=== PATIENT | female | born 1960 | race Caucasian/White ===

== ENCOUNTER → 2016-10-12 | Outpatient (CLI) | payer BC ==
--- NOTE | 2016-10-13 08:22 | MM ---
Reason for exam: screening (asymptomatic). Last mammogram was performed 9 months ago. History: Patient is postmenopausal. Family history of breast cancer in paternal aunt. Benign left US cyst aspiration of the left breast, September 27, 2007. Benign US left CoreBiopsy of the left breast, September 27, 2007. Took hormonal contraceptives for 12 years. Physical Findings: A clinical breast exam by your physician is recommended on an annual basis and results should be correlated with mammographic findings. MG Screening Mammo w CAD Bilateral CC and MLO view(s) were taken. Prior study comparison: January 02, 2016, right breast MG 3d work up w/cad RT. December 17, 2015, bilateral MG screening mammo w CAD. The breast tissue is extremely dense which could obscure a lesion on mammography. Previous mammotome biopsy within the left breast. There is no discrete abnormality. ASSESSMENT: Benign, BI-RAD 2 RECOMMENDATION: Routine screening mammogram of both breasts in 1 year.
== END | disposition home or self-care (01) ==
LOC: RADMAMWWP 16:52
PROVIDERS: ATTEND Obstetrics & Gynecology
DX: Z12.31 Encounter for screening mammogram for malignant neoplasm of breast (principal)

== ENCOUNTER → 2017-11-22 | Outpatient (CLI) | payer BC ==
--- NOTE | 2017-11-23 13:37 | MM ---
Reason for exam: screening (asymptomatic). Last mammogram was performed 1 year and 1 month ago. History: Patient is postmenopausal. Family history of breast cancer in paternal aunt. Benign left US cyst aspiration of the left breast, September 27, 2007. Benign US left CoreBiopsy of the left breast, September 27, 2007. Took hormonal contraceptives for 12 years. Physical Findings: A clinical breast exam by your physician is recommended on an annual basis and results should be correlated with mammographic findings. MG 3D Screening Mammo W/Cad Bilateral CC and MLO view(s) were taken. Prior study comparison: October 12, 2016, bilateral MG screening mammo w CAD. January 02, 2016, right breast MG 3d work up w/cad RT. The breast tissue is heterogeneously dense. This may lower the sensitivity of mammography. Previous mammotome biopsy in the left breast. There is no discrete abnormality. Benign bilateral axillary lymph nodes redemonstrated. ASSESSMENT: Benign, BI-RAD 2 RECOMMENDATION: Routine screening mammogram of both breasts in 1 year.
== END | disposition home or self-care (01) ==
LOC: RADMAMWWP 16:55
PROVIDERS: ATTEND Obstetrics & Gynecology
DX: Z12.31 Encounter for screening mammogram for malignant neoplasm of breast (principal); Z80.3 Family history of malignant neoplasm of breast
CPT/HCPCS: 77063; 77067

== ENCOUNTER → 2019-01-12 | Outpatient (CLI) | payer BC ==
--- NOTE | 2019-01-16 09:18 | MM ---
Reason for exam: screening (asymptomatic). Last mammogram was performed 1 year and 2 months ago. History: Patient is postmenopausal. Family history of breast cancer in paternal aunt. Benign left US cyst aspiration of the left breast, September 27, 2007. Benign US left CoreBiopsy of the left breast, September 27, 2007. Took hormonal contraceptives for 12 years. Physical Findings: A clinical breast exam by your physician is recommended on an annual basis and results should be correlated with mammographic findings. MG 3D Screening Mammo W/Cad Bilateral CC and MLO view(s) were taken. Prior study comparison: November 22, 2017, bilateral MG 3d screening mammo w/cad. October 12, 2016, bilateral MG screening mammo w CAD. The breast tissue is heterogeneously dense. This may lower the sensitivity of mammography. Previous mammotome biopsy in the left breast. No significant changes when compared with prior studies. ASSESSMENT: Negative, BI-RAD 1 RECOMMENDATION: Routine screening mammogram of both breasts in 1 year.
== END | disposition home or self-care (01) ==
LOC: RADMAMWWP 16:47
PROVIDERS: ATTEND Obstetrics & Gynecology
DX: Z12.31 Encounter for screening mammogram for malignant neoplasm of breast (principal)
CPT/HCPCS: 77063; 77067

== ENCOUNTER → 2021-10-16 | Outpatient (CLI) | payer BC ==
--- NOTE | 2021-10-21 12:28 | MM ---
Reason for exam: screening (asymptomatic). Last mammogram was performed 2 years and 9 months ago. History: Patient is postmenopausal. Family history of breast cancer in paternal aunt at age 60. Benign left US cyst aspiration of the left breast, September 27, 2007. Benign US left CoreBiopsy of the left breast, September 27, 2007. Took hormonal contraceptives for 12 years. Physical Findings: A clinical breast exam by your physician is recommended on an annual basis and results should be correlated with mammographic findings. MG 3D Screening Mammo W/Cad Bilateral CC and MLO view(s) were taken. Prior study comparison: January 12, 2019, bilateral MG 3d screening mammo w/cad. November 22, 2017, bilateral MG 3d screening mammo w/cad. The breast tissue is heterogeneously dense. This may lower the sensitivity of mammography. Previous mammotome biopsy in the left breast. Two medial asymmetric densities left CC view posteriorly are unchanged. No significant changes when compared with prior studies. ASSESSMENT: Benign, BI-RAD 2 RECOMMENDATION: Routine screening mammogram of both breasts in 1 year. Patient should continue monthly self breast exams. A negative report should not preclude additional follow up of suspicious palpable abnormalities.
== END | disposition home or self-care (01) ==
LOC: RADMAMWWP 16:47
PROVIDERS: ATTEND Obstetrics & Gynecology
DX: Z12.31 Encounter for screening mammogram for malignant neoplasm of breast (principal); Z78.0 Asymptomatic menopausal state; Z80.3 Family history of malignant neoplasm of breast
CPT/HCPCS: 77063; 77067

== ENCOUNTER → 2022-12-29 | Outpatient (CLI) | payer BC ==
--- NOTE | 2022-12-30 09:09 | MM ---
Reason for Exam: Screening (asymptomatic). Last mammogram was performed 1 year(s) and 2 month(s) ago. Patient History: Menarche at age 14. First Full-Term at age 29. Postmenopausal. Patient used Hormonal Contraceptives for 12 years. 09/27/2007, Benign Cyst Aspiration on the left side. 09/27/2007, Benign Core Biopsy on the left side. Paternal aunt had breast cancer, age 60. Risk Values: Flor 5 year model risk: 1.9%. NCI Lifetime model risk: 9.5%. Prior Study Comparison: 11/22/2017 Bilateral Screening Mammogram, [facility]. 01/12/2019 Bilateral Screening Mammogram, [facility]. 10/16/2021 Bilateral Screening Mammogram, [facility]. Tissue Density: The breast tissue is heterogeneously dense. This may lower the sensitivity of mammography. Findings: Analyzed By CAD. There is mammotome biopsy clip in the left breast redemonstrated. There is occasional tiny benign-appearing round calcification in the bilateral breasts redemonstrated. Benign-appearing bilateral axillary lymph nodes are redemonstrated. There is no suspicious group of microcalcifications or new suspicious mass in either breast. Overall Assessment: Benign, BI-RAD 2 Management: Screening Mammogram of both breasts in 1 year. . Patient should continue monthly self-breast exams. A clinical breast exam by your physician is recommended on an annual basis. This exam should not preclude additional follow-up of suspicious palpable abnormalities. Note on Flor scores and lifetime risk: 1. A Flor score greater than 3% is considered moderate risk. If this is the case, consider specialist referral to assess eligibility for a risk reducing agent. 2. If overall lifetime risk for the development of breast cancer is 20% or higher, the patient may qualify for future screening with alternating mammogram and breast MRI. Electronically signed and approved by: Sai Zavala M.D.
== END | disposition home or self-care (01) ==
LOC: RADMAMWWP 16:51
PROVIDERS: ATTEND Obstetrics & Gynecology
DX: Z12.31 Encounter for screening mammogram for malignant neoplasm of breast (principal); Z78.0 Asymptomatic menopausal state; Z80.3 Family history of malignant neoplasm of breast
CPT/HCPCS: 77063; 77067

== ENCOUNTER → 2024-02-16 | Outpatient (CLI) | payer BC ==
[2024-02-16 15:30] LABS: HCT 43.2 % (37.2-46.3); HGB 14.8 g/dL (12.0-15.0); MCHC 34.3 g/dL (32.0-37.0); MCV 90.4 FL (80.0-97.0); Mean Platelet Volume 10.6 FL (9.5-12.2); NRBC Per 100 WBC 0 X 10*3/uL (0.00-0.01); Platelet Count 361 X 10*3/uL (140-440); RBC 4.78 X 10*6/uL (4.10-5.20); RDW 13.2 % (11.5-14.5); WBC 11.33 X 10*3/uL (4.50-10.00)
[2024-02-16 16:16] LABS: Blood Urea Nitrogen 11.7 mg/dL (9.0-27.0); Calcium 9.4 mg/dL (8.7-10.3); Carbon Dioxide 24.6 mmol/L (21.6-31.8); Chloride 102 mmol/L (96-109); Chol/HDL Ratio 5.68 Ratio; Glucose 107 mg/dL (70-110); LDL Cholesterol,Calculated 127.7 mg/dL (0.0-131.0); Potassium 3.9 mmol/L (3.5-5.5); Sodium 140 mmol/L (135-145)
[2024-02-16 16:17] LABS: ALT 21 U/L (8-44); AST 19 U/L (13-35); Albumin 4.6 g/dL (3.8-4.9)
== END | disposition home or self-care (01) ==
LOC: LABWHC1 08:21
PROVIDERS: ATTEND Internal Medicine Cardiovascular Disease
DX: E78.2 Mixed hyperlipidemia (principal); R60.0 Localized edema; R06.2 Wheezing
CPT/HCPCS: 36415; 80048; 80061; 82040; 84443; 84450; 84460; 85027

== ENCOUNTER 2024-03-29 12:50 | Inpatient (IN) | payer BC ==
[2024-03-29] MEDS: ASPIRIN 81 MG PO STA (13:26)
[2024-03-29] MEDS: SODIUM CHLORIDE 0.9% 1,000 ML IV STA (13:27)
[2024-03-29 13:30] LABS: Basophils % (A) 0 %; Eosinophils # (A) 0.1 k/uL (0-0.7); Eosinophils % (A) 1 %; HCT 44.5 % (34.0-46.0); HGB 15.1 gm/dL (11.4-16.0); Lymphocytes # (A) 0.8 k/uL (1.0-4.8); Lymphocytes % (A) 5 %; MCH 30.9 pg (25.0-35.0); MCHC 33.9 g/dL (31.0-37.0); MCV 91.2 fL (80.0-100.0); Mean Platelet Volume 7.2; Monocytes # (A) 0.3 k/uL (0-1.0); Monocytes % (A) 2 %; Neutrophils # (A) 14.1 k/uL (1.3-7.7); Neutrophils % (A) 91 %; Platelet Count 439 k/uL (150-450); RBC 4.88 m/uL (3.80-5.40); RDW 12.7 % (11.5-15.5); WBC 15.5 k/uL (3.8-10.6)
[2024-03-29] MEDS: DILTIAZEM DRIP BOLUS FROM BAG 1 MG SOLN IV ONE ×2 (13:39→14:24)
[2024-03-29] MEDS: DILTIAZEM 125 MG in SODIUM CHLORIDE 0.9% 100 ML IV SCH (13:41)
[2024-03-29 13:42] LABS: ALT 60 U/L (4-34); African American GFR (CKD) >90 (>60 ml/min/1.73 sqM); Albumin 4.4 g/dL (3.5-5.0); Anion Gap 8 mmol/L; Blood Urea Nitrogen 13 mg/dL (7-17); Calcium 9.6 mg/dL (8.4-10.2); Carbon Dioxide 24 mmol/L (22-30); Chloride 96 mmol/L (98-107); Glucose 134 mg/dL (74-99); Non-African American GFR(CKD) >90 (>60 ml/min/1.73 sqM); Sodium 128 mmol/L (137-145); Total Bilirubin 0.6 mg/dL (0.2-1.3); Total Protein 7.2 g/dL (6.3-8.2)
[2024-03-29 13:44] LABS: AST 38 U/L (14-36); INR 0.9 (<1.2); Magnesium 1.9 mg/dL (1.6-2.3); Partial Thromboplastin Time 24.3 sec (22.0-30.0); Potassium 4.9 mmol/L (3.5-5.1); Prothrombin Time 10.2 sec (10.0-12.5)
[2024-03-29 13:45] LABS: Alkaline Phosphatase 74 U/L (38-126)
[2024-03-29 13:48] LABS: NT-Pro-B-Type Natriuretic Pept 109 pg/mL
--- NOTE | 2024-03-29 13:53 | ED ---
General Adult HPI - General Chief complaint: Arrhythmia/Palpitations Stated complaint: SOB Time Seen by Provider: 03/29/24 13:10 Source: patient, RN notes reviewed, old records reviewed Mode of arrival: wheelchair Limitations: no limitations - History of Present Illness Initial comments: Patient is a 63-year-old female who presents emergency department for palpitations, cough, congestion. Patient has been getting treatment for an upper respiratory infection with her PCP Dr. Pink. Given prednisone, breathing treatments, antibiotics. States today she began having more shortness of breath after using her inhaler. States she felt like her heart was racing when this occurred. Presents for further evaluation at this time. Patient p laced in room 19 where I evaluated the patient. She endorses coughing. Ongoing since over the weekend. Presents for further evaluation at this time. Past medical history includes hypertension, thyroid disorder, history of tobacco use. - Related Data Home Medications Medication Instructions Recorded Confirmed Ascorbic Acid [Vitamin C] 1,000 mg PO DAILY 03/29/24 03/29/24 Azelastine HCl [Astelin Nasal 2 spray EA NOSTRIL BID PRN 03/29/24 03/29/24 [place]] Azithromycin [Zithromax Z Pack] See Taper PO DIRECTED 03/29/24 03/29/24 Fluticasone/Umeclidin/Vilanter 1 puff INHALATION RT-DAILY 03/29/24 03/29/24 [Trelegy Ellipta 100-62.5-25] Levothyroxine Sodium [Synthroid] 125 mcg PO DAILY 03/29/24 03/29/24 Losartan/Hydrochlorothiazide 1 tab PO DAILY 03/29/24 03/29/24 [Losartan-Hctz 100-25 mg Tab] Multivitamins, Thera [Multivitamin 1 tab PO DAILY 03/29/24 03/29/24 (formulary)] Potassium Chloride ER [K-Dur 10] 10 meq PO DAILY 03/29/24 03/29/24 amLODIPine [Norvasc] 10 mg PO DAILY 03/29/24 03/29/24 hydrALAZINE HCL [Apresoline] 50 mg PO BID 03/29/24 03/29/24 predniSONE 50 mg PO DAILY 03/29/24 03/29/24 Allergies Allergy/AdvReac Type Severity Reaction Status Date / Time amoxicillin [From Augmentin] Allergy Nausea & Verified 03/29/24 13:37 Vomiting clavulanic acid Allergy Nausea & Verified 03/29/24 13:37 [From Augmentin] Vomiting Review of Systems ROS Statement: Those systems with pertinent positive or pertinent negative responses have been documented in the HPI. Review of Systems: CONST: Denies fever EYES: Denies blurry vision ENT: Denies nasal congestion C/V: Endorses palpitations RESP: Endorses shortness of breath GI: Denies abdominal pain : Denies dysuria SKIN: Denies rash. MSK: Denies joint pain. NEURO: Denies headache ROS Other: All systems not noted in ROS Statement are negative. Past Medical History Past Medical History: Hypertension, Thyroid Disorder History of Any Multi-Drug Resistant Organisms: None Reported Past Surgical History: Section, Cholecystectomy, Tonsillectomy Past Psychological History: No Psychological Hx Reported Smoking Status: Current every day smoker Past Alcohol Use History: None Reported Past Drug Use History: None Reported General Exam - General Exam Comments Initial Comments: General: Appears in mild distress and discomfort secondary to palpitations. HEAD: Normal with no signs of head trauma. EYES: PERRLA, EOMI, conjunctiva normal, no discharge. ENT: Hearing grossly intact, normal oropharynx. RESPIRATORY: Mildly coarse breath sounds bilaterally. No significant hypoxia. No significant increased work of breathing. C/V: Irregular rate and rhythm. S1 and S2 auscultated, no edema, peripheral pulses 2+ and intact throughout ABD: Abd is soft, nontender, nondistended EXT: Normal range of motion, no obvious deformity SKIN: No rashes or lesions observed on exposed skin. NEURO: Alert and oriented x 4. Limitations: no limitations Course Vital Signs 03/29/24 03/29/24 03/29/24 12:51 13:32 13:36 Temperature 98.1 F Pulse Rate 151 H 151 H Pulse Rate [ 155 H Internal Medicine Physician ] Respiratory 16 18 Rate Blood Pressure 135/77 106/74 O2 Sat by Pulse 94 L 98 Oximetry 03/29/24 03/29/24 03/29/24 13:37 13:43 14:00 Temperature Pulse Rate 149 H 137 H 149 H Pulse Rate [ Internal Medicine Physician ] Respiratory 18 18 20 Rate Blood Pressure 113/81 122/78 O2 Sat by Pulse 95 95 96 Oximetry 03/29/24 03/29/24 03/29/24 14:15 14:25 14:30 Temperature Pulse Rate 142 H 130 H 80 Pulse Rate [ Internal Medicine Physician ] Respiratory 20 18 18 Rate Blood Pressure 131/105 126/86 131/76 O2 Sat by Pulse 97 96 96 Oximetry 03/29/24 03/29/24 14:32 16:30 Temperature Pulse Rate 128 H 136 H Pulse Rate [ Internal Medicine Physician ] Respiratory 18 18 Rate Blood Pressure 90/72 O2 Sat by Pulse 96 98 Oximetry Medical Decision Making - Medical Decision Making Was pt. sent in by a medical professional or institution (, [facility], SEED LABORATORY TECHNICIAN, urgent care, hospital, or penitentiary...) When possible be specific @ -No Did you speak to anyone other than the patient for history (EMS, parent, family, police, friend...)? What history was obtained from this source @ -No Did you review nursing and triage notes (agree or disagree)? Why? @ -I reviewed and agree with nursing and triage notes Were old charts reviewed (outside hosp., previous admission, EMS record, old EKG, old radiological studies, urgent care reports/EKG's, penitentiary records)? Report findings @ -No old EKGs available for review Differential Diagnosis (chest pain, altered mental status, abdominal pain women, abdominal pain men, vaginal bleeding, weakness, fever, dyspnea, syncope, headache, dizziness, GI bleed, back pain, seizure, CVA, palpatations, mental health, musculoskeletal)? @ -Differential Palpitations Ventricular arrhythmias, atrial arrhythmias, myocardial infarction, anemia, thyrotoxicosis, electrolyte imbalance, hypokalemia, pulmonary embolism, pulmonary disease, drugs, alcohol, anxiety, stress.... This is not meant to be an all-inclusive list. EKG interpreted by me (3pts min.). @ -As above X-rays interpreted by me (1pt min.). @ -Chest x-ray reveals no obvious acute cardiopulmonary process. CT interpreted by me (1pt min.). @ -None done U/S interpreted by me (1pt. min.). @ -None done What testing was considered but not performed or refused? (CT, X-rays, U/S, labs)? Why? @ -None What meds were considered but not given or refused? Why? @ -None Did you discuss the management of the patient with other professionals (professionals i.e. , PA, SEED LABORATORY TECHNICIAN, lab, RT, psych nurse, oncology social work, tractor trailer mechanic, teacher, surface to air weapons officer, heel caser)? Give summary @ -Discussed with [facility] Dr. Meraz who accepted the admission. Was smoking cessation discussed for >3mins.? @ -No Was critical care preformed (if so, how long)? @ -Yes, 41 minutes. Were there social determinants of health that impacted care today? How? (Homelessness, low income, unemployed, alcoholism, drug addiction, transportation, low edu. Level, literacy, decrease access to med. care, longterm, rehab)? @ -No Was there de-escalation of care discussed even if they declined (Discuss DNR or withdrawal of care, Hospice)? DNR status @ -No What co-morbidities impacted this encounter? (DM, HTN, Smoking, COPD, CAD, Cancer, CVA, ARF, Chemo, Hep., AIDS, mental health diagnosis, sleep apnea, morbid obesity)? @ -None Was patient admitted / discharged? Hospital course, mention meds given and route, prescriptions, significant lab abnormalities, going to OR and other pertinent info. @ -Based on the patient's presentation and physical exam, presents in new onset A-fib with RVR. Will obtain cardiopulmonary workup. Patient will be given a 1 L fluid bolus as well as started on Cardizem for A-fib. She was in agreement with this plan. Vital signs other than the tachycardia from the A-fib are within acceptable limits. Patient was in agreement this plan. Given 324 mg of aspirin. EKG shows A-fib with RVR.Chest x-ray shows no obvious acute cardiopulmonary process. Laboratory studies remarkable for elevated white count of 15.5 but patient has been on steroids. Likely reactive. Troponin undetectable. BNP within normal limits. D-dimer within normal limits. Remainder the workup unremarkable. At this time, patient placed on heparin drip. Patient's Cardizem drip is up to 7.5. Patient does intermittently convert to normal sinus rhythm. On average, patient is improved on this increased dose of Cardizem with heart rates typicall y 100-1 20 versus 1 40-1 60 upon presentation. Will continue with therapy. Cardiology will be consulted. Echo ordered. Patient in agreement this plan. I spoke with the admitting team, [facility] Dr. Meraz of [facility] who accepted the admission. Undiagnosed new problem with uncertain prognosis? @ -No Drug Therapy requiring intensive monitoring for toxicity (Heparin, Nitro, Insulin, Cardizem)? @ -Cardizem, heparin Were any procedures done? @ -No Diagnosis/symptom? @ -New onset atrial fibrillation with RVR Acute, or Chronic, or Acute on Chronic? @ -Acute Uncomplicated (without systemic symptoms) or Complicated (systemic symptoms)? @ -Complicated Side effects of treatment? @ -None Exacerbation, Progression, or Severe Exacerbation] @ -No Poses a threat to life or bodily function? @ -Yes - Lab Data Result diagrams: 03/29/24 13:23 03/29/24 13:23 Lab Results 03/29/24 03/29/24 03/29/24 Range/Units 13:23 13:23 13:23 WBC 15.5 H (3.8-10.6) k/uL RBC 4.88 (3.80-5.40) m/uL Hgb 15.1 (11.4-16.0) gm/dL Hct 44.5 (34.0-46.0) % MCV 91.2 (80.0-100.0) fL MCH 30.9 (25.0-35.0) pg MCHC 33.9 (31.0-37.0) g/dL RDW 12.7 (11.5-15.5) % Plt Count 439 (150-450) k/uL MPV 7.2 Neutrophils % 91 % Lymphocytes % 5 % Monocytes % 2 % Eosinophils % 1 % Basophils % 0 % Neutrophils # 14.1 H (1.3-7.7) k/uL Lymphocytes # 0.8 L (1.0-4.8) k/uL Monocytes # 0.3 (0-1.0) k/uL Eosinophils # 0.1 (0-0.7) k/uL Basophils # 0.0 (0-0.2) k/uL PT 10.2 (10.0-12.5) sec INR 0.9 (<1.2) APTT 24.3 (22.0-30.0) sec D-Dimer 0.25 (<0.60) mg/L FEU Sodium 128 L (137-145) mmol/L Potassium 4.9 (3.5-5.1) mmol/L Chloride 96 L (98-107) mmol/L Carbon Dioxide 24 (22-30) mmol/L Anion Gap 8 mmol/L BUN 13 (7-17) mg/dL Creatinine 0.46 L (0.52-1.04) mg/dL Est GFR (CKD-EPI)AfAm >90 (>60 ml/min/1.73 sqM) Est GFR (CKD-EPI)NonAf >90 (>60 ml/min/1.73 sqM) Glucose 134 H (74-99) mg/dL Calcium 9.6 (8.4-10.2) mg/dL Magnesium 1.9 (1.6-2.3) mg/dL Total Bilirubin 0.6 (0.2-1.3) mg/dL AST 38 H (14-36) U/L ALT 60 H (4-34) U/L Alkaline Phosphatase 74 (38-126) U/L Troponin I (0.000-0.034) ng/mL NT-Pro-B Natriuret Pep 109 pg/mL Total Protein 7.2 (6.3-8.2) g/dL Albumin 4.4 (3.5-5.0) g/dL Urine Color Urine Appearance (Clear) Urine pH (5.0-8.0) Ur Specific [place] (1.001-1.035) Urine Protein (Negative) Urine Glucose (UA) (Negative) Urine Ketones (Negative) Urine Blood (Negative) Urine Nitrite (Negative) Urine Bilirubin (Negative) Urine Urobilinogen (<2.0) mg/dL Ur Leukocyte Esterase (Negative) Influenza Type A (PCR) (Not Detectd) Influenza Type B (PCR) (Not Detectd) RSV (PCR) (Not Detectd) SARS-CoV-2 (PCR) (Not Detectd) 03/29/24 03/29/24 03/29/24 Range/Units 13:23 13:23 13:23 WBC (3.8-10.6) k/uL RBC (3.80-5.40) m/uL Hgb (11.4-16.0) gm/dL Hct (34.0-46.0) % MCV (80.0-100.0) fL MCH (25.0-35.0) pg MCHC (31.0-37.0) g/dL RDW (11.5-15.5) % Plt Count (150-450) k/uL MPV Neutrophils % % Lymphocytes % % Monocytes % % Eosinophils % % Basophils % % Neutrophils # (1.3-7.7) k/uL Lymphocytes # (1.0-4.8) k/uL Monocytes # (0-1.0) k/uL Eosinophils # (0-0.7) k/uL Basophils # (0-0.2) k/uL PT (10.0-12.5) sec INR (<1.2) APTT (22.0-30.0) sec D-Dimer (<0.60) mg/L FEU Sodium (137-145) mmol/L Potassium (3.5-5.1) mmol/L Chloride (98-107) mmol/L Carbon Dioxide (22-30) mmol/L Anion Gap mmol/L BUN (7-17) mg/dL Creatinine (0.52-1.04) mg/dL Est GFR (CKD-EPI)AfAm (>60 ml/min/1.73 sqM) Est GFR (CKD-EPI)NonAf (>60 ml/min/1.73 sqM) Glucose (74-99) mg/dL Calcium (8.4-10.2) mg/dL Magnesium (1.6-2.3) mg/dL Total Bilirubin (0.2-1.3) mg/dL AST (14-36) U/L ALT (4-34) U/L Alkaline Phosphatase (38-126) U/L Troponin I <0.012 (0.000-0.034) ng/mL NT-Pro-B Natriuret Pep pg/mL Total Protein (6.3-8.2) g/dL Albumin (3.5-5.0) g/dL Urine Color Colorless Urine Appearance Clear (Clear) Urine pH 7.0 (5.0-8.0) Ur Specific [place] 1.004 (1.001-1.035) Urine Protein Negative (Negative) Urine Glucose (UA) Negative (Negative) Urine Ketones Negative (Negative) Urine Blood Negative (Negative) Urine Nitrite Negative (Negative) Urine Bilirubin Negative (Negative) Urine Urobilinogen <2.0 (<2.0) mg/dL Ur Leukocyte Esterase Negative (Negative) Influenza Type A (PCR) Not Detected (Not Detectd) Influenza Type B (PCR) Not Detected (Not Detectd) RSV (PCR) Not Detected (Not Detectd) SARS-CoV-2 (PCR) Not Detected (Not Detectd) - EKG Data -: EKG Interpreted by Me EKG Comments: 12-lead Electrocardiogram Interpretation Note EKG was reviewed and interpreted by myself. 12-lead ECG performed at 1303 is interpreted by me as revealing A-fib with RVR at a rate of 149 beats per minute. [place] is normal. QRS durations 142 ms, QTc is 3 and 43 ms.. There were no ST or T wave abnormalities to suggest myocardial ischemia or injury. R wave progression across the precordium was satisfactory. By my interpretation this EKG is non-diagnostic for acute ischemia. 12-lead Electrocardiogram Interpretation Note EKG was reviewed and interpreted by myself. 12-lead ECG performed at 1440 is interpreted by me as revealing normal sinus rhythm at a rate of 70 beats per minute. [place] is normal. MS interval is 150 ms, QRS duration is 81 ms, QTc is 394 ms.. There were no ST or T wave abnormalities to suggest myocardial ischemia or injury. R wave progression across the precordium was satisfactory. By my interpretation this EKG is non-diagnostic for acute ischemia. Critical Care Time Critical Care Time: Yes Total Critical Care Time: 41 Disposition Clinical Impression: Atrial fibrillation with RVR Disposition: ADMITTED IP TO THIS HOSP Condition: Stable Time of Disposition: 14:40
[2024-03-29] MEDS ORDERED: NALOXONE 0.4 MG/ML 1 ML VIAL IV PRN (14:42)
[2024-03-29] MEDS ORDERED: HEPARIN SODIUM 1,000 UN/ML (10ML VL) IV PRN (14:42)
--- NOTE | 2024-03-29 14:57 | XR ---
EXAMINATION TYPE: XR chest 1V portable DATE OF EXAM: 03/29/2024 2:13 PM CLINICAL INDICATION: Female, 63 years old with history of cough; [facility] COMPARISON: None TECHNIQUE: XR chest 1V portable Frontal view of the chest. FINDINGS: Lungs/Pleura: There is no evidence of pleural effusion, focal consolidation, or pneumothorax. Pulmonary vascularity: Unremarkable. Heart/mediastinum: Cardiomediastinal silhouette is unremarkable. Musculoskeletal: No acute osseous pathology. Other findings: None IMPRESSION: No acute cardiopulmonary disease/process.
[2024-03-29] MEDS: SODIUM CHLORIDE 0.9% 1,000 ML IV SCH (15:03)
[2024-03-29] MEDS: HEPARIN SOD,PORK IN 0.45% NACL 25,000 UNIT in 0.45% NACL 1 250ML.BAG IV SCH (15:05)
[2024-03-29] MEDS: HEPARIN SODIUM 1,000 UN/ML (10ML VL) IV ONE (15:23)
[2024-03-29 15:24] LABS: Appearance,Urine Clear (Clear); Bilirubin,Urine Negative (Negative); Blood,Urine Negative (Negative); Color,Urine Colorless; Glucose,Urine (UA) Negative (Negative); Ketones,Urine Negative (Negative); Leukocyte Esterase,Urine Negative (Negative); Nitrite,Urine Negative (Negative); Protein,Urine Negative (Negative); Specific Gravity,Urine 1.004 (1.001-1.035); Urobilinogen,Urine <2.0 mg/dL (<2.0)
[2024-03-30] MEDS: DILTIAZEM CD 120 MG CAP.ER.24H PO SCH (09:22)
[2024-03-30] MEDS: hydrALAZINE HCL 25 MG TAB PO SCH (09:22)
--- NOTE | 2024-03-30 10:06 | P.CRDCN ---
History of Present Illness Consult date: 03/30/24 Reason for Consult (text): New onset atrial fibrillation History of present illness: This is a 63-year-old female patient of Dr. Rehan López with past medical history of palpitations, hypertension, tobacco use, chronic bilateral leg edema, hypoth yroidism. Patient was recently evaluated in the office on 01/24 and at that time patient was having shortness of breath mild to moderate intensity with exertion and relieved at rest. Patient underwent event monitor, exercise stress test and results are below. Echocardiogram was also ordered but is scheduled at a later date. Patient gives history that she was feeling okay but she had cold symptoms and was seen by Dr. Pink started on prednisone and azithromycin on Wednesday. She has had ongoing cough, no fever. She also states her medications were changed by Dr. Pink due to her blood pressure running high. Upon arrival, patient was found to be in atrial flutter with RVR. Patient was started on Cardizem bolus 5 mg followed by drip and heparin drip. Blood pressure 134/71, heart rate 69, pulse ox 96% on 2 L nasal cannula. Patient has subsequently converted to sinus rhythm around 2 in the afternoon yesterday. EKG: #1 atrial flutter at 149 bpm, #2 sinus rhythm at 70 bpm. Chest x-ray: Laboratory studies: WBC 15.5, hemoglobin 15.1. D-dimer 0.25. Sodium 128, potassium 4.9, BUN 13 creatinine 0.46. Troponins negative x 3. proBNP 109. Influenza A, influenza B, RSV and COVID-19 not detected Home cardiac medications: Amlodipine 10 mg daily, hydralazine 50 mg twice daily, losartan/hydrochlorothiazide 100-25 mg 1 daily, potassium chloride 10 mill equivalents daily, also on levothyroxine 125 mcg daily. Event monitor performed 02/28 - 03/01/2024 revealed sinus arrhythmia lasting 7 beats. Primary rhythm sinus rhythm average heart rate 88 bpm, maximum heart rate 179. No evidence of A-fib/flutter, pauses, AV block, ventricular arrhythmias. Exercise stress test performed in the office on 02/29/2024 revealed fair exercise tolerance. No symptoms typical of angina. Just arrhythmias in the form of occasional PVCs. Normal electrocardiographic response to exercise with no yoshi dence of stress-induced ischemia. Echocardiogram performed in the office in 2019 revealed normal LV size and function, mild MR, mild TR, mild [place]. Review Of Systems: At the time of my exam: CONSTITUTIONAL: Denies fever or chills. HEENT: Denies blurred vision, vision changes, or eye pain. Denies hemoptysis CARDIOVASCULAR: Denies chest pain. Denies orthopnea. Denies PND. Denies palpitations RESPIRATORY: Denies shortness of breath. GASTROINTESTINAL: Denies abdominal pain. Denies nausea or vomiting. HEMATOLOGIC: Denies bleeding disorders. GENITOURINARY: Denies any blood in urine. SKIN: Denies puritis. Denies rash. Physical examination: Gen: This is a 63-year-old female VS: reviewed HEENT: Head is atraumatic, normocephalic. Pupils equal, round. Sclerae is anicteric. NECK: Supple. No JVD. LUNGS: Few scattered rhonchi. No intercostal retractions. HEART: Regular rate and rhythm. No murmur. ABDOMEN: Soft No tenderness. EXTREMITIES: Mild pedal edema. No calf tenderness. NEUROLOGICAL: Patient is awake, alert and oriented x3. Assessment: New onset A-fib with RVR, paroxysmal Hypertension Tobacco use and dependence Hypothyroidism Chronic lower extremity edema Plan: Resume patient's home cardiac medications Hold beta-rossi and start patient on Cardizem CD1 120 mg oral daily Discontinue heparin drip and start patient on Eliquis 5 mg twice daily Obtain TSH and free T4 Obtain 2-D echocardiogram and Doppler study to assess cardiac structure and function Further recommendations to follow based upon clinical course Thank you kindly for this consultation. Nurse practitioner note has been reviewed, I agree with documented findings and plan of care. Patient was seen and examined. Past Medical History Past Medical History: Hypertension, Thyroid Disorder History of Any Multi-Drug Resistant Organisms: None Reported Past Surgical History: Section, Cholecystectomy, Tonsillectomy Past Psychological History: No Psychological Hx Reported Smoking Status: Current every day smoker Past Alcohol Use History: None Reported Past Drug Use History: None Reported Medications and Allergies Home Medications Medication Instructions Recorded Confirmed Type Ascorbic Acid [Vitamin C] 1,000 mg PO DAILY 03/29/24 03/29/24 History Azelastine HCl [Astelin Nasal 2 spray EA NOSTRIL BID PRN 03/29/24 03/29/24 History [place]] Azithromycin [Zithromax Z Pack] See Taper PO DIRECTED 03/29/24 03/29/24 History Fluticasone/Umeclidin/Vilanter 1 puff INHALATION RT-DAILY 03/29/24 03/29/24 History [Trelegy Ellipta 100-62.5-25] Levothyroxine Sodium [Synthroid] 125 mcg PO DAILY 03/29/24 03/29/24 History Losartan/Hydrochlorothiazide 1 tab PO DAILY 03/29/24 03/29/24 History [Losartan-Hctz 100-25 mg Tab] Multivitamins, Thera [Multivitamin 1 tab PO DAILY 03/29/24 03/29/24 History (formulary)] Potassium Chloride ER [K-Dur 10] 10 meq PO DAILY 03/29/24 03/29/24 History amLODIPine [Norvasc] 10 mg PO DAILY 03/29/24 03/29/24 History hydrALAZINE HCL [Apresoline] 50 mg PO BID 03/29/24 03/29/24 History predniSONE 50 mg PO DAILY 03/29/24 03/29/24 History Apixaban [Eliquis] 5 mg PO BID #180 tab 03/30/24 Rx Allergies Allergy/AdvReac Type Severity Reaction Status Date / Time amoxicillin [From Augmentin] Allergy Nausea & Verified 03/29/24 13:37 Vomiting clavulanic acid Allergy Nausea & Verified 03/29/24 13:37 [From Augmentin] Vomiting Physical Exam Vitals: Vital Signs Temp Pulse Pulse Resp BP Pulse Ox 03/30/24 06:59 98.3 F 69 16 134/71 96 03/29/24 18:52 87 18 109/60 94 L 03/29/24 18:00 77 18 112/68 95 03/29/24 17:00 72 18 104/64 94 L 03/29/24 16:30 136 H 18 90/72 98 03/29/24 14:32 128 H 18 96 03/29/24 14:30 80 18 131/76 96 03/29/24 14:25 130 H 18 126/86 96 03/29/24 14:15 142 H 20 131/105 97 03/29/24 14:00 149 H 20 122/78 96 03/29/24 13:43 137 H 18 95 03/29/24 13:37 149 H 18 113/81 95 03/29/24 13:36 151 H 18 106/74 98 03/29/24 13:32 155 H 03/29/24 12:51 98.1 F 151 H 16 135/77 94 L Intake and Output 03/29/24 03/30/24 03/30/24 22:59 06:59 14:59 Intake Total 15.125 67.833 Balance 15.125 67.833 Intake: Intake, IV Titration 15.125 67.833 Amount Diltiazem 125 mg In 15.125 67.833 Sodium Chloride 0.9% 100 ml @ 5 MG/HR 5 mls/hr IV .Q24H [facility] Rx#:[id number] Results 03/29/24 13:23 03/29/24 13:23 Cardiac Enzymes 03/29/24 03/29/24 03/29/24 Range/Units 13:23 13:23 16:32 AST 38 H (14-36) U/L Troponin I <0.012 <0.012 (0.000-0.034) ng/mL 03/29/24 Range/Units 21:01 AST (14-36) U/L Troponin I <0.012 (0.000-0.034) ng/mL Coagulation 03/29/24 03/29/24 Range/Units 13:23 21:01 PT 10.2 (10.0-12.5) sec APTT 24.3 24.5 (22.0-30.0) sec CBC 03/29/24 Range/Units 13:23 WBC 15.5 H (3.8-10.6) k/uL RBC 4.88 (3.80-5.40) m/uL Hgb 15.1 (11.4-16.0) gm/dL Hct 44.5 (34.0-46.0) % Plt Count 439 (150-450) k/uL Comprehensive Metabolic Panel 03/29/24 Range/Units 13:23 Sodium 128 L (137-145) mmol/L Potassium 4.9 (3.5-5.1) mmol/L Chloride 96 L (98-107) mmol/L Carbon Dioxide 24 (22-30) mmol/L BUN 13 (7-17) mg/dL Creatinine 0.46 L (0.52-1.04) mg/dL Glucose 134 H (74-99) mg/dL Calcium 9.6 (8.4-10.2) mg/dL AST 38 H (14-36) U/L ALT 60 H (4-34) U/L Alkaline Phosphatase 74 (38-126) U/L Total Protein 7.2 (6.3-8.2) g/dL Albumin 4.4 (3.5-5.0) g/dL Current Medications Generic Name Dose Route Start Last Admin Trade Name Freq PRN Reason Stop Dose Admin Heparin Sodium (Porcine) 0 unit 03/29/24 14:42 Heparin Sodium 1,000 Un/Ml (10ml Vl) IV PER PROTOCOL PRN Low PTT Protocol Diltiazem HCl 125 mg/ Sodium 125 mls @ 5 mls/hr 03/29/24 13:30 03/30/24 06:10 Chloride IV 5 mg/hr .Q24H [facility] 5 mls/hr Administration 5 MG/HR Heparin Sodium/Sodium Chloride 250 mls @ 10 mls/hr 03/29/24 14:45 03/29/24 15:05 25,000 unit/ Sodium Chloride IV 10.207 units/kg/hr .Q24H MOE 10 mls/hr Administration Protocol 10.207 UNITS/KG/HR Sodium Chloride 1,000 mls @ 75 mls/hr 03/29/24 14:45 03/30/24 06:42 Saline 0.9% IV Not Given .[id number] MOE Naloxone HCl 0.2 mg 03/29/24 14:42 Naloxone 0.4 Mg/Ml 1 Ml Vial IV Q2M PRN Opioid Reversal Intake and Output 03/29/24 03/30/24 03/30/24 22:59 06:59 14:59 Intake Total 15.125 67.833 Balance 15.125 67.833 Intake: Intake, IV Titration 15.125 67.833 Amount Diltiazem 125 mg In 15.125 67.833 Sodium Chloride 0.9% 100 ml @ 5 MG/HR 5 mls/hr IV .Q24H [facility] Rx#:[id number] 03/29/24 13:23 03/29/24 13:23
[2024-03-30] MEDS: LOSARTAN-HCTZ 50-12.5 MG 1 EACH TAB PO SCH (10:08)
[2024-03-30] MEDS: APIXABAN 5 MG TAB PO SCH (10:08)
[2024-03-30] MEDS ORDERED: AZELASTINE 137MCG/SPRAY EA NOSTRIL PRN (11:46)
[2024-03-30] MEDS ORDERED: IPRATROPIUM-ALBUTEROL 3 ML NEB INHALATION PRN ×2 (11:49→14:01)
[2024-03-30 11:57] LABS: ALT 50 U/L (4-34); AST 29 U/L (14-36); African American GFR (CKD) >90 (>60 ml/min/1.73 sqM); Albumin 4.1 g/dL (3.5-5.0); Alkaline Phosphatase 69 U/L (38-126); Anion Gap 5 mmol/L; Blood Urea Nitrogen 13 mg/dL (7-17); Calcium 9.3 mg/dL (8.4-10.2); Carbon Dioxide 29 mmol/L (22-30); Chloride 99 mmol/L (98-107); Glucose 92 mg/dL (74-99); Non-African American GFR(CKD) >90 (>60 ml/min/1.73 sqM); Potassium 4.7 mmol/L (3.5-5.1); Sodium 133 mmol/L (137-145); Total Bilirubin 0.5 mg/dL (0.2-1.3); Total Protein 6.6 g/dL (6.3-8.2)
[2024-03-30] MEDS: guaiFENesin 600 MG TABLET.ER PO SCH (12:54)
--- NOTE | 2024-03-30 14:01 | P.CNPUL ---
History of Present Illness Consult date: 03/30/24 Requesting physician: Jitendra Pink Reason for consult: dyspnea, cough, COPD, hypoxemia Chief complaint: Shortness of breath, rapid heartbeat. History of present illness: Pulmonary consult dated March 30, 2024. 63-year-old female presented to the emergency department, on March 29, at about 1 PM. The patient came in with complaints of rapid heartbeat, palpitations, and shortness of breath. She apparently had seen her doctor, and was given steroids and antibiotics, with only minimal improvement. More recently, things got worse, so she decided to come into the emergency department to be evaluated. Her primary care physician is Dr. Jitendra Pink. She is a heavy smoker, having smoked at least a pack a day for 40 years. She does continue to smoke up until the time of her admission. She denied any fever or chills. She was coughing. Things have gotten worse over the last few days, and, she was admitted to the hospital with a diagnosis of atrial fibrillation/flutter, with r apid ventricular response, as well as COPD exacerbation. She is seen today in room 19, in the emergency department. Her past medical history is positive for hypertension, hypothyroidism, and most certainly, COPD. She has never seen a lung doctor in the past, but was recently given Trelegy, by her primary care physician. In addition as mentioned above, she received steroids and antibiotics. Surgical history includes , cholecystectomy, and tonsillectomy. Current laboratory data includes a white count of 15.5, with a normal hemoglobin, hematocrit, platelet count. Coagulation studies including D- dimer were normal. Sodium 133, potassium 4.7, chloride 99, CO2 29, BUN 13, creatinine 0.65. Troponins were negative x 3. N-terminal proBNP was normal. Urine was negative. Influenza RSV, and coronavirus testing was negative. Initial EKG showed atrial flutter with rapid ventricular response, and subsequent EKG showed sinus rhythm. She is currently in sinus rhythm. Chest x- ray was unremarkable. Review of Systems REVIEW OF SYSTEMS: CONSTITUTIONAL: [Negative.] NEUROLOGIC: [ Negative.] HEENT: [ Negative.] CARDIAC: Rapid heartbeat, palpitations. The patient also has lower extremity edema. PULMONARY: Shortness of breath, wheezing, chest tightness, cough and chest congestion. GI: [Negative.] : [Negative.] RHEUMATOLOGIC: [ Negative.] IMMUNOLOGIC: [ Negative.] ENDOCRINE: [Negative. ] DERMATOLOGIC: [Negative.] Past Medical History Past Medical History: Hypertension, Thyroid Disorder History of Any Multi-Drug Resistant Organisms: None Reported Past Surgical History: Section, Cholecystectomy, Tonsillectomy Past Psychological History: No Psychological Hx Reported Smoking Status: Current every day smoker Past Alcohol Use History: None Reported Past Drug Use History: None Reported Medications and Allergies Home Medications Medication Instructions Recorded Confirmed Type Ascorbic Acid [Vitamin C] 1,000 mg PO DAILY 03/29/24 03/29/24 History Azelastine HCl [Astelin Nasal 2 spray EA NOSTRIL BID PRN 03/29/24 03/29/24 History [place]] Azithromycin [Zithromax Z Pack] See Taper PO DIRECTED 03/29/24 03/29/24 History Fluticasone/Umeclidin/Vilanter 1 puff INHALATION RT-DAILY 03/29/24 03/29/24 History [Trelegy Ellipta 100-62.5-25] Levothyroxine Sodium [Synthroid] 125 mcg PO DAILY 03/29/24 03/29/24 History Losartan/Hydrochlorothiazide 1 tab PO DAILY 03/29/24 03/29/24 History [Losartan-Hctz 100-25 mg Tab] Multivitamins, Thera [Multivitamin 1 tab PO DAILY 03/29/24 03/29/24 History (formulary)] Potassium Chloride ER [K-Dur 10] 10 meq PO DAILY 03/29/24 03/29/24 History amLODIPine [Norvasc] 10 mg PO DAILY 03/29/24 03/29/24 History hydrALAZINE HCL [Apresoline] 50 mg PO BID 03/29/24 03/29/24 History predniSONE 50 mg PO DAILY 03/29/24 03/29/24 History Apixaban [Eliquis] 5 mg PO BID #180 tab 03/30/24 Rx Allergies Allergy/AdvReac Type Severity Reaction Status Date / Time amoxicillin [From Augmentin] Allergy Nausea & Verified 03/29/24 13:37 Vomiting clavulanic acid Allergy Nausea & Verified 03/29/24 13:37 [From Augmentin] Vomiting Physical Exam Osteopathic Statement: *. No significant issues noted on an osteopathic structural exam other than those noted in the History and Physical/Consult. Vitals: Vital Signs Temp Pulse Resp BP Pulse Ox 03/30/24 12:53 87 18 144/77 96 03/30/24 10:00 79 18 126/68 93 L 03/30/24 09:24 82 18 143/82 93 L 03/30/24 08:15 95 03/30/24 07:46 74 18 128/70 95 03/30/24 06:59 98.3 F 69 16 134/71 96 03/29/24 18:52 87 18 109/60 94 L 03/29/24 18:00 77 18 112/68 95 03/29/24 17:00 72 18 104/64 94 L 03/29/24 16:30 136 H 18 90/72 98 03/29/24 14:32 128 H 18 96 03/29/24 14:30 80 18 131/76 96 03/29/24 14:25 130 H 18 126/86 96 03/29/24 14:15 142 H 20 131/105 97 03/29/24 14:00 149 H 20 122/78 96 Intake and Output 03/29/24 03/30/24 03/30/24 22:59 06:59 14:59 Intake Total 15.125 67.833 9.75 Balance 15.125 67.833 9.75 Intake: Intake, IV Titration 15.125 67.833 9.75 Amount Diltiazem 125 mg In 15.125 67.833 9.75 Sodium Chloride 0.9% 100 ml @ 5 MG/HR 5 mls/hr IV .Q24H [facility] Rx#:[id number] No acute distress, oriented 3. Mild dyspnea during conversation. No audible wheezing. HEENT examination is grossly unremarkable. Mucous membranes are moist. No oral lesions. Neck supple. Full range of motion. No adenopathy thyromegaly or neck vein distention. Cardiovascular examination reveals regular rhythm rate. S1-S2 normal. No S3 or S4. No discernible murmur noted. Heart rate 80 bpm. Lungs reveal Tory rhonchi and wheezes. Breath sounds are equal bilaterally. No crackles. There is prolongation on forced maneuver. Adventitious lung sounds are more prominent on forced maneuver. Room air saturation is 94%. Abdomen soft bowel sounds are heard. No masses or tenderness. Extremities are intact. No cyanosis or clubbing. 1+ edema to the lower extremities. Skin is without rash or lesion. Neurologic examination is brief but nonfocal. Results - Laboratory Findings CBC and BMP: 03/29/24 13:23 03/30/24 10:53 PT/INR, D-dimer PT 10.2 sec (10.0-12.5) 03/29/24 13:23 INR 0.9 (<1.2) 03/29/24 13:23 D-Dimer 0.25 mg/L FEU (<0.60) 03/29/24 13:23 Abnormal lab findings: Abnormal Labs 03/29/24 03/29/24 03/30/24 13:23 13:23 10:53 WBC 15.5 H Neutrophils # 14.1 H Lymphocytes # 0.8 L Sodium 128 L 133 L Chloride 96 L Creatinine 0.46 L Glucose 134 H AST 38 H ALT 60 H 50 H - Diagnostic Findings Chest x-ray: image reviewed Assessment and Plan Assessment: Acute exacerbation of COPD. Atrial fibrillation and flutter, likely the result of the patient's underlying COPD. Possible cor pulmonale and pulmonary hypertension, secondary to COPD. History of ongoing tobacco use with nicotine addiction for 40 years. History of hypertension. History of hypothyroidism. Obesity. Plan: Plan dated March 30, 2024. The patient is seen in the emergency department, room 19. Her is also in the room. The patient has a COPD exacerbation, which likely triggered her irregular rapid heartbeat. I suspect she has a component of cor pulmonale and pulmonary hypertension, as she does have some trace edema. The patient has smoked at least a pack a day for 40+ years. She does continue to smoke cigarettes. The patient is placed on Pulmicort 1 mg mixed with formoterol 20 mcg twice a day. In addition, the patient will get DuoNebs, 4 times daily and as needed. Finally, the patient should get Solu-Medrol 60 mg every 6 hours. No need for an antibiotic at this time. A procalcitonin level can be checked. Chest x-ray was unremarkable. She did have antibiotics as an outpatient. The patient is counseled about the importance of smoking cessation. Would suggest a nicotine patch. Time with Patient: Greater than 30
--- NOTE | 2024-03-30 14:34 | P.HPIM ---
History of Present Illness H&P Date: 03/30/24 Patient is a 63-year-old female with history of hypertension and current smoker who came in for shortness of breath that occurred yesterday 03/29. Patient reports she used a new inhaler prescribed by PCP and shortly afterwards she felt short of breath that was nonpleuritic with associated palpitation. Patient reports that she has been having episodes of shortness of breath with exertion prior to this event and is being evaluated by group managing director (Dr. López). She denies chest pain, abdominal pain, loss of consciousness, new or worsening cough, fevers, or leg pain. She is is currently on antibiotics and prednisone for cold as per her PCP. EKG shows a flutter with RVR has converted to NSR at 70 bpm with good R wave progression and QTc 394 MS. Chest x-ray shows no acute process but is noted to have some congestion. WBC 15.5. Sodium 128 glucose 134 AST 38 ALT 60 troponin negative at less than 0.0 12 proBNP 109. D-dimer 0.25. Negative for COVID-19, influenza type A and B, and RSV. ED documentation reviewed. Review of systems: Pertinent positives and negatives as discussed in HPI, a complete review of systems was performed and all other systems are negative. Family history: Mother was known to have hypertension and lung cancer. Father was known to have diabetes type 2 and hypertension. Social history: Tobacco: Current smoker [id number] history Alcohol: Occasional alcohol intake Recreational drugs: Denies drug history Travel: No recent travel Occupation: correctional officer lieutenant Physical examination: Vital signs reviewed General: non toxic, no distress, appears at stated age, normal weight Derm: no unusual rashes/lesions, warm Head: atraumatic, normocephalic, symmetric Eyes: EOMI, no lid lag, anicteric sclera, pupils equal round reactive to light ENT: Nose and ears atraumatic Neck: No cervical lymphadenopathy, trachea midline, supple Mouth: no lip lesion, mucus membranes moist Cardiovascular: S1S2 reg, no murmur, Lungs: Wheezes are heard on middle and lower lung evans on the left greater than right, no rhonchi, no rales, no accessory muscle use Abdominal: soft, nontender to palpation, no guarding Ext: muscle strength 5 out of 5 in all 4 extremities grossly, no gross muscle atrophy, no contractures, positive dorsalis pedis pulse bilateral, no edema Neuro: CN II-XI grossly intact, no gross focal neuro deficits Psych: Alert, oriented, appropriate affect and mood Assessment/Plan: #. Shortness of breath COPD in acute exacerbation Patient currently stable. Patient has wheezes on assessment. Chest x-ray shows some congestion. Patient is a current smoker of 40 pack year history. -Order Solu-Medrol 40 mg IV OD -Order Tessalon Perles 3 times daily as needed for cough -Order Mucinex p.o. twice daily for decongestion -Order DuoNebs x 4 daily -Resume Pulmicort, Trelegy, Symbicort, Perforomist -Consult pulmonology #. A-fib with RVR likely due to above Patient now in NSR on telemetry, stable, and asymptomatic. Troponins are negativ e. -Continue with cardiac monitoring -Continue with Cardizem drip -Discontinue heparin and switch to Eliquis -For 2D echo -Discontinue Norvasc -Consult cardiology Chronic conditions: Hypertension, hypothyroidism, current smoker, obesity DVT prophylaxis: Eliquis 5 mg p.o. twice daily The patient is admitted with an anticipated more than than 2 midnight stay for evaluation of shortness of breath and COPD exacerbation CODE STATUS: Full Discussed with: Patient Anticipated discharge place: Home Attestation I have seen and examined this patient with my resident , discussed the same with the resident/CORBIN, and agree with the dictator's assessment and plan as written GENERAL: The patient is alert and oriented x3, not in any acute distress. Well developed, well nourished. HEENT: Pupils are round and equally reacting to light. EOMI. No scleral icterus. No conjunctival pallor. Normocephalic, atraumatic. No pharyngeal erythema. No thyromegaly. CARDIOVASCULAR: S1 and S2 present. No murmurs, rubs, or gallops. PULMONARY: Coarse breath sounds bilaterally, no wheezing or crackles. ABDOMEN: Soft, nontender, nondistended, normoactive bowel sounds. No palpable organomegaly. MUSCULOSKELETAL: No joint swelling or deformity. EXTREMITIES: No cyanosis, clubbing, or pedal edema. NEUROLOGICAL: Gross neurological examination did not reveal any focal deficits. SKIN: No rashes. Dr. Lázaro klein Past Medical History Past Medical History: Hypertension, Thyroid Disorder History of Any Multi-Drug Resistant Organisms: None Reported Past Surgical History: Section, Cholecystectomy, Tonsillectomy Past Psychological History: No Psychological Hx Reported Smoking Status: Current every day smoker Past Alcohol Use History: None Reported Past Drug Use History: None Reported Medications and Allergies Home Medications Medication Instructions Recorded Confirmed Type Ascorbic Acid [Vitamin C] 1,000 mg PO DAILY 03/29/24 03/29/24 History Azelastine HCl [Astelin Nasal 2 spray EA NOSTRIL BID PRN 03/29/24 03/29/24 History [place]] Azithromycin [Zithromax Z Pack] See Taper PO DIRECTED 03/29/24 03/29/24 History Fluticasone/Umeclidin/Vilanter 1 puff INHALATION RT-DAILY 03/29/24 03/29/24 History [Trelegy Ellipta 100-62.5-25] Levothyroxine Sodium [Synthroid] 125 mcg PO DAILY 03/29/24 03/29/24 History Losartan/Hydrochlorothiazide 1 tab PO DAILY 03/29/24 03/29/24 History [Losartan-Hctz 100-25 mg Tab] Multivitamins, Thera [Multivitamin 1 tab PO DAILY 03/29/24 03/29/24 History (formulary)] Potassium Chloride ER [K-Dur 10] 10 meq PO DAILY 03/29/24 03/29/24 History amLODIPine [Norvasc] 10 mg PO DAILY 03/29/24 03/29/24 History hydrALAZINE HCL [Apresoline] 50 mg PO BID 03/29/24 03/29/24 History predniSONE 50 mg PO DAILY 03/29/24 03/29/24 History Apixaban [Eliquis] 5 mg PO BID #180 tab 03/30/24 Rx Allergies Allergy/AdvReac Type Severity Reaction Status Date / Time amoxicillin [From Augmentin] Allergy Nausea & Verified 03/29/24 13:37 Vomiting clavulanic acid Allergy Nausea & Verified 03/29/24 13:37 [From Augmentin] Vomiting Physical Exam Vitals: Vital Signs Temp Pulse Pulse Resp BP Pulse Ox 03/30/24 07:46 74 18 128/70 95 03/30/24 06:59 98.3 F 69 16 134/71 96 03/29/24 18:52 87 18 109/60 94 L 03/29/24 18:00 77 18 112/68 95 03/29/24 17:00 72 18 104/64 94 L 03/29/24 16:30 136 H 18 90/72 98 03/29/24 14:32 128 H 18 96 03/29/24 14:30 80 18 131/76 96 03/29/24 14:25 130 H 18 126/86 96 03/29/24 14:15 142 H 20 131/105 97 03/29/24 14:00 149 H 20 122/78 96 03/29/24 13:43 137 H 18 95 03/29/24 13:37 149 H 18 113/81 95 03/29/24 13:36 151 H 18 106/74 98 03/29/24 13:32 155 H 03/29/24 12:51 98.1 F 151 H 16 135/77 94 L Intake and Output 03/29/24 03/30/24 03/30/24 22:59 06:59 14:59 Intake Total 15.125 67.833 Balance 15.125 67.833 Intake: Intake, IV Titration 15.125 67.833 Amount Diltiazem 125 mg In 15.125 67.833 Sodium Chloride 0.9% 100 ml @ 5 MG/HR 5 mls/hr IV .Q24H [facility] Rx#:[id number] Results CBC & Chem 7: 03/29/24 13:23 03/30/24 10:53 Labs: Abnormal Lab Results - Last 24 Hours (Table) 03/29/24 03/29/24 Range/Units 13:23 13:23 WBC 15.5 H (3.8-10.6) k/uL Neutrophils # 14.1 H (1.3-7.7) k/uL Lymphocytes # 0.8 L (1.0-4.8) k/uL Sodium 128 L (137-145) mmol/L Chloride 96 L (98-107) mmol/L Creatinine 0.46 L (0.52-1.04) mg/dL Glucose 134 H (74-99) mg/dL AST 38 H (14-36) U/L ALT 60 H (4-34) U/L
[2024-03-30] MEDS: methylPREDNISolone SOD SUCCI 40 MG/ML 1 ML VIAL IV SCH (14:51)
[2024-03-30] MEDS: IPRATROPIUM-ALBUTEROL 3 ML NEB INHALATION SCH (15:04)
[2024-03-30] MEDS: methylPREDNISolone SOD SUCCI 125 MG/2 ML VIAL IV SCH (19:23)
[2024-03-30] MEDS ORDERED: SYMBICORT 80-4.5 MCG INHALER INHALATION SCH (20:00)
[2024-03-30 20:05] LABS: Glucose,Whole Blood 121 mg/dL (70-110)
[2024-03-30] MEDS: FORMOTEROL FUMARATE 20 MCG/2 ML NEBU INHALATION SCH (21:02)
[2024-03-30] MEDS: BUDESONIDE 1 MG/2 ML NEBU INHALATION SCH (21:02)
[2024-03-31 06:11] LABS: Glucose,Whole Blood 132 mg/dL (70-110)
[2024-03-31] MEDS: LEVOTHYROXINE 125 MCG TAB PO SCH (06:38)
[2024-03-31] MEDS ORDERED: IPRATROPIUM 0.5 MG/2.5 ML NEBU INHALATION SCH (08:00)
[2024-03-31] MEDS: ASCORBIC ACID 500 MG TAB PO SCH (08:30)
--- NOTE | 2024-03-31 09:55 | P.PN ---
Subjective Progress Note Date: 03/31/24 Reason for Consult (text): New onset atrial fibrillation History of present illness: This is a 63-year-old female patient of Dr. Rehan López with past medical history of palpitations, hypertension, tobacco use, chronic bilateral leg edema, hypothyroidism. Patient was recently evaluated in the office on 01/24 and at that time patient was having shortness of breath mild to moderate intensity with exertion and relieved at rest. Patient underwent event monitor, exercise stress test and results are below. Echocardiogram was also ordered but is scheduled at a later date. Patient gives history that she was feeling okay but she had cold symptoms and was seen by Dr. Pink started on prednisone and azithromycin on Wednesday. She has had ongoing cough, no fever. She also states her medications were changed by Dr. Pink due to her blood pressure running high. Upon arrival, patient was found to be in atrial flutter with RVR. Patient was started on Cardizem bolus 5 mg followed by drip and heparin drip. Blood pressure 134/71, heart rate 69, pulse ox 96% on 2 L nasal cannula. Patient has subsequently converted to sinus rhythm around 2 in the afternoon yesterday. EKG: #1 atrial flutter at 149 bpm, #2 sinus rhythm at 70 bpm. Chest x-ray: Laboratory studies: WBC 15.5, hemoglobin 15.1. D-dimer 0.25. Sodium 128, potassium 4.9, BUN 13 creatinine 0.46. Troponins negative x 3. proBNP 109. Influenza A, influenza B, RSV and COVID-19 not detected Home cardiac medications: Amlodipine 10 mg daily, hydralazine 50 mg twice daily, losartan/hydrochlorothiazide 100-25 mg 1 daily, potassium chloride 10 mill equivalents daily, also on levothyroxine 125 mcg daily. Event monitor performed 02/28 - 03/01/2024 revealed sinus arrhythmia lasting 7 beats. Primary rhythm sinus rhythm average heart rate 88 bpm, maximum heart rate 179. No evidence of A-fib/flutter, pauses, AV block, ventricular arrhythmias. Exercise stress test performed in the office on 02/29/2024 revealed fair exercise tolerance. No symptoms typical of angina. Just arrhythmias in the form of occasional PVCs. Normal electrocardiographic response to exercise with no evidence of stress-induced ischemia. Echocardiogram performed in the office in 2018 revealed normal LV size and function, mild MR, mild TR, mild PA. 03/31 Patient remains in sinus rhythm. She was started on Eliquis yesterday. She continues to have some wheezing and treated for COPD exacerbation. Echocardiogr am is pending. Patient states that her breathing is better. No palpitations. No chest pain. TSH came back normal. Physical examination: Gen: This is a 63-year-old female VS: reviewed HEENT: Head is atraumatic, normocephalic. Pupils equal, round. Sclerae is anicteric. NECK: Supple. No JVD. LUNGS: Bilateral wheezing. No intercostal retractions. HEART: Regular rate and rhythm. No murmur. ABDOMEN: Soft No tenderness. EXTREMITIES: Mild pedal edema. No calf tenderness. NEUROLOGICAL: Patient is awake, alert and oriented x3. Assessment: New onset A-fib with RVR, paroxysmal COPD exacerbation Hypertension Tobacco use and dependence Hypothyroidism Chronic lower extremity edema Plan: Continue patient's home cardiac medications Continue Cardizem CD 120 mg oral daily Continue Eliquis 5 mg twice daily Obtain 2-D echocardiogram and Doppler study to assess cardiac structure and function If echocardiogram is unremarkable, patient is cleared from cardiology for discharge. Patient to follow-up with Dr. Rehan López in 3 weeks. Nurse practitioner note has been reviewed, I agree with documented findings and plan of care. Patient was seen and examined. Objective - Vital Signs Vital signs: Vital Signs Temp 97.2 F L 03/31/24 00:00 Pulse 76 03/31/24 08:00 Resp 20 03/31/24 03:40 BP 138/76 03/31/24 03:40 Pulse Ox 95 03/31/24 08:03 FiO2 Intake & Output 03/30/24 03/31/24 03/31/24 18:59 06:59 18:59 Intake Total 489.75 Balance 489.75 Weight 95.7 kg Intake: Intake, IV Titration 9.75 Amount Diltiazem 125 mg In 9.75 Sodium Chloride 0.9% 100 ml @ 5 MG/HR 5 mls/hr IV .Q24H [facility] Rx#:[id number] Oral 480 Other: Voiding Method Toilet # Voids 1 1 - Labs CBC & Chem 7: 03/29/24 13:23 03/30/24 10:53 Labs: Abnormal Lab Results - Last 24 Hours (Table) 03/30/24 03/30/24 03/31/24 Range/Units 10:53 20:03 06:09 Sodium 133 L (137-145) mmol/L POC Glucose (mg/dL) 121 H 132 H (70-110) mg/dL ALT 50 H (4-34) U/L
--- NOTE | 2024-03-31 10:56 | P.PN ---
Subjective Progress Note Date: 03/31/24 Patient is a 63-year-old female with history of hypertension and current smoker who came in for shortness of breath that occurred yesterday 03/29. Patient reports she used a new inhaler prescribed by PCP and shortly afterwards she felt short of breath that was nonpleuritic with associated palpitation. Patient reports that she has been having episodes of shortness of breath with exertion prior to this event and is being evaluated by retail route supervisor (Dr. López). She denies chest pain, abdominal pain, loss of consciousness, new or worsening cough, fevers, or leg pain. She is is currently on antibiotics and prednisone for cold as per her PCP. EKG shows A-fib with RVR has converted to NSR at 70 bpm with good R wave progression and QTc 394 MS. Chest x-ray shows no acute process but is noted to have some congestion. Negative for COVID-19, influenza type A and B, and RSV. 03/31 patient seen and examined at bedside. Reports no new complaints overnight. Reports cough has improved. Review of systems: Pertinent positives and negatives as discussed in HPI, a complete review of systems was performed and all other systems are negative. Pertinent imaging and labs reviewed. Physical examination: Vital signs reviewed General: non toxic, no distress, appears at stated age, normal weight Derm: no unusual rashes/lesions, warm Head: atraumatic, normocephalic, symmetric Eyes: EOMI, no lid lag, anicteric sclera, pupils equal round reactive to light ENT: Nose and ears atraumatic Neck: No cervical lymphadenopathy, trachea midline, supple Mouth: no lip lesion, mucus membranes moist Cardiovascular: S1S2 reg, no murmur Lungs: Wheezing bilateral in all lung evans, no accessory muscle use Abdominal: soft, nontender to palpation, no guarding Ext: muscle strength 5 out of 5 in all 4 extremities grossly, no gross muscle atrophy, no contractures, positive dorsalis pedis pulse bilateral, no edema Neuro: CN II-XI grossly intact, no gross focal neuro deficits Psych: Alert, oriented, appropriate affect and mood Assessment/Plan: #. COPD in acute exacerbation, improving Patient currently stable. Patient has wheezes on assessment. Patient is a current smoker of 40 pack year history. -Per pulmonology, hold antibiotics for now, Solu-Medrol 60 mg every 6 hours IV -Continue DuoNebs x 4 daily -Resume Pulmicort, Trelegy, Symbicort, Perforomist -Continue Tessalon Perles 3 times daily as needed for cough -Continue Mucinex p.o. twice daily for decongestion #. A-fib with RVR likely due to above, resolved Patient now in NSR on telemetry, stable, and asymptomatic. Troponins are negative. Patient had no new episodes of conversion to A-fib -Per cardiology, continue home meds, if echo is unremarkable, will be cleared for discharge. Follow up with Dr. Rehan López in 3 weeks. -Continue with cardiac monitoring -Continue Cardizem 120 p.o. twice daily -Continue Eliquis 5 mg p.o. -Follow up 2D echo Chronic conditions: Hypertension, hypothyroidism, current smoker, obesity DVT prophylaxis: Eliquis 5 mg p.o. twice daily Attestation I have seen and examined this patient with my resident , discussed the same with the resident/CORBIN, and agree with the dictator's assessment and plan as written Dr. Lázaro klein Objective - Vital Signs Vital signs: Vital Signs Temp 97.2 F L 03/31/24 00:00 Pulse 75 03/31/24 03:40 Resp 20 03/31/24 03:40 BP 138/76 03/31/24 03:40 Pulse Ox 90 L 03/31/24 03:40 FiO2 Intake & Output 03/30/24 03/30/24 03/31/24 06:59 18:59 06:59 Intake Total 67.833 489.75 Balance 67.833 489.75 Weight 97.976 kg 95.7 kg Intake: Intake, IV Titration 67.833 9.75 Amount Diltiazem 125 mg In 67.833 9.75 Sodium Chloride 0.9% 100 ml @ 5 MG/HR 5 mls/hr IV .Q24H [facility] Rx#:[id number] Oral 480 Other: Voiding Method Toilet # Voids 1 1 - Labs CBC & Chem 7: 04/01/24 09:02 03/31/24 10:31 Labs: Abnormal Lab Results - Last 24 Hours (Table) 03/30/24 03/30/24 03/31/24 Range/Units 10:53 20:03 06:09 Sodium 133 L (137-145) mmol/L POC Glucose (mg/dL) 121 H 132 H (70-110) mg/dL ALT 50 H (4-34) U/L
[2024-03-31 11:12] LABS: Glucose,Whole Blood 151 mg/dL (70-110)
[2024-03-31 11:40] LABS: African American GFR (CKD) >90 (>60 ml/min/1.73 sqM); Anion Gap 10 mmol/L; Blood Urea Nitrogen 15 mg/dL (7-17); Calcium 9.9 mg/dL (8.4-10.2); Carbon Dioxide 25 mmol/L (22-30); Chloride 98 mmol/L (98-107); Glucose 137 mg/dL (74-99); Non-African American GFR(CKD) >90 (>60 ml/min/1.73 sqM); Potassium 4.6 mmol/L (3.5-5.1); Sodium 133 mmol/L (137-145)
[2024-03-31] MEDS: ACETAMINOPHEN TAB 325 MG TAB PO PRN (12:05)
--- NOTE | 2024-03-31 12:30 | P.PN ---
Subjective Progress Note Date: 03/31/24 Principal diagnosis: COPD exacerbation. Pulmonary consult dated March 30, 2024. 63-year-old female presented to the emergency department, on March 29, at about 1 PM. The patient came in with complaints of rapid heartbeat, palpitations, and shortness of breath. She apparently had seen her doctor, and was given steroids and antibiotics, with only minimal improvement. More recently, things got worse, so she decided to come into the emergency department to be evaluated. H er primary care physician is Dr. Jitendra Pink. She is a heavy smoker, having smoked at least a pack a day for 40 years. She does continue to smoke up until the time of her admission. She denied any fever or chills. She was coughing. Things have gotten worse over the last few days, and, she was admitted to the hospital with a diagnosis of atrial fibrillation/flutter, with rapid ventricular response, as well as COPD exacerbation. She is seen today in room 19, in the emergency department. Her past medical history is positive for hypertension, hypothyroidism, and most certainly, COPD. She has never seen a lung doctor in the past, but was recently given Trelegy, by her primary care physician. In addition as mentioned above, she received steroids and antibiotics. Surgical history includes , cholecystectomy, and tonsillectomy. Current laboratory data includes a white count of 15.5, with a normal hemoglobin, hematocrit, platelet count. Coagulation studies including D-dimer were normal. Sodium 133, potassium 4.7, chloride 99, CO2 29, BUN 13, creatinine 0.65. Troponins were negative x 3. N-terminal proBNP was normal. Urine was negative. Influenza RSV, and coronavirus testing was negative. Initial EKG showed atrial flutter with rapid ventricular response, and subsequent EKG showed sinus rhythm. She is currently in sinus rhythm. Chest x-ray was unremarkable. This note dated March 31, 2024. 63-year-old female seen yesterday in the emergency department. She was admitted with a COPD exacerbation, and atrial fibrillation with RVR. She is currently on room air. She is not receiving any IV fluids. The patient disputes the fact that she is a heavy smoker, having smoked 1 to 1-1/2 pack of cigarettes a day for 40+ years. She is feeling better from the pulmonary standpoint. We have her on appropriate medications including updrafts, and corticosteroids. I have counseled her over and over about the importance of smoking cessation. Current laboratory data includes a sodium 133, potassium 4.6, chloride 98, CO2 25, BUN 15, creatinine 0.54. Glucose is 151. Calcium is 9.9. Procalcitonin level was 0.04. TSH was normal. Objective - Vital Signs Vital signs: Vital Signs Temp 97.8 F 03/31/24 12:15 Pulse 91 03/31/24 12:15 Resp 22 03/31/24 12:15 BP 144/78 03/31/24 12:15 Pulse Ox 93 L 03/31/24 12:15 FiO2 Intake & Output 03/30/24 03/31/24 03/31/24 18:59 06:59 18:59 Intake Total 489.75 210 Balance 489.75 210 Weight 95.7 kg Intake: IV 10 Invasive Line 1 10 Intake, IV Titration 9.75 Amount Diltiazem 125 mg In 9.75 Sodium Chloride 0.9% 100 ml @ 5 MG/HR 5 mls/hr IV .Q24H [facility] Rx#:[id number] Oral 480 200 Other: Voiding Method Toilet Toilet # Voids 1 1 - Exam No acute distress, oriented 3. Mild dyspnea during conversation. No audible wheezing. Only on room air. HEENT examination is grossly unremarkable. Mucous membranes are moist. No oral lesions. Neck supple. Full range of motion. No adenopathy thyromegaly or neck vein distention. Cardiovascular examination reveals regular rhythm rate. S1-S2 normal. No S3 or S4. No discernible murmur noted. Heart rate 91 bpm. Lungs reveal Tory rhonchi and wheezes. Breath sounds are equal bilaterally. No crackles. There is prolongation on forced maneuver. Adventitious lung sounds are more prominent on forced maneuver. Room air saturation is 93 %. Abdomen soft bowel sounds are heard. No masses or tenderness. Extremities are intact. No cyanosis or clubbing. Less than 1+ edema to the lower extremities. Skin is without rash or lesion. Neurologic examination is brief but nonfocal. - Labs CBC & Chem 7: 03/29/24 13:23 03/31/24 10:31 Labs: Abnormal Lab Results - Last 24 Hours (Table) 03/30/24 03/30/24 03/31/24 Range/Units 10:53 20:03 06:09 Sodium 133 L (137-145) mmol/L Glucose (74-99) mg/dL POC Glucose (mg/dL) 121 H 132 H (70-110) mg/dL ALT 50 H (4-34) U/L 03/31/24 03/31/24 Range/Units 10:31 11:11 Sodium 133 L (137-145) mmol/L Glucose 137 H (74-99) mg/dL POC Glucose (mg/dL) 151 H (70-110) mg/dL ALT (4-34) U/L Assessment and Plan Assessment: Acute exacerbation of COPD. Atrial fibrillation and flutter, likely the result of the patient's underlying COPD. Possible cor pulmonale and pulmonary hypertension, secondary to COPD. History of ongoing tobacco use with nicotine addiction for 40 years. History of hypertension. History of hypothyroidism. Obesity. Plan: Plan dated March 30, 2024. The patient is seen in the emergency department, room 19. Her is also in the room. The patient has a COPD exacerbation, which likely triggered her irregular rapid heartbeat. I suspect she has a component of cor pulmonale and pulmonary hypertension, as she does have some trace edema. The patient has smoked at least a pack a day for 40+ years. She does continue to smoke cigarettes. The patient is placed on Pulmicort 1 mg mixed with formoterol 20 mcg twice a day. In addition, the patient will get DuoNebs, 4 times daily and as needed. Finally, the patient should get Solu-Medrol 60 mg every 6 hours. No need for an antibiotic at this time. A procalcitonin level can be checked. Chest x-ray was unremarkable. She did have antibiotics as an outpatient. The patient is counseled about the importance of smoking cessation. Would suggest a nicotine patch. Plan dated March 31, 2024. The patient is seen today in room 354. The patient is feeling better from the pulmonary standpoint. Her only complaint today was a headache. Labs, x-rays, medications are reviewed. She remains on appropriate medications. She is counseled again, about the importance of smoking cessation. She will need follow-up in the office, with complete pulmonary function test. Phenotypically, she looks like the typical patient with chronic bronchitis/blue bloater. Time with Patient: Less than 30
[2024-03-31] MEDS: DILTIAZEM ORAL 30 MG TAB PO STA (13:19)
--- NOTE | 2024-03-31 13:52 | CA ---
Transthoracic Echo Report Name: Iraida Pratt Age: 63 Gender: F : 1960 Exam Date: 03/31/2024 10:36 Exam Location: [facility] Ht (in): 66 Wt (lb): 216 Ordering Physician: Edison Perry MD Attending/Referring Phys: [employer] Architect Yarely aMncilla RDCS Procedure CPT: Indications: New onset afib Cardiac Hx: Technical Quality: Technically difficult study Contrast 1: Definity Total Dose (mL): 2 Contrast 2: Total Dose (mL): MEASUREMENTS (Male / Female) Normal Values DOPPLER AV Peak Velocity 165.9 cm/s AV Peak Gradient 11.0 mmHg AV Mean Velocity 107.7 cm/s AV Mean Gradient 5.3 mmHg AV Velocity Time Integral 29.8 cm LVOT Peak Velocity 106.7 cm/s LVOT Peak Gradient 4.6 mmHg LVOT Velocity Time Integral 19.6 cm Mitral E Point Velocity 46.7 cm/s Mitral A Point Velocity 64.8 cm/s Mitral E to A Ratio 0.7 MV Deceleration Time 183.8 ms MV E' Velocity 7.3 cm/s Mitral E to MV E' Ratio 6.4 TR Peak Velocity 274.2 cm/s TR Peak Gradient 30.1 mmHg Right Atrial Pressure 5.0 mmHg Pulmonary Artery Systolic Pressu 35.1 mmHg Right Ventricular Systolic Press 35.1 mmHg FINDINGS Left Ventricle Left ventricular ejection fraction is estimated at 60 %. Left ventricular cavity size normal. No obvious regional wall motion abnormalities. Right Ventricle Right ventricle not well visualized. Right ventricular systolic pressure within normal limits. Right Atrium Right atrium not well visualized. Left Atrium Normal left atrial size. Mitral Valve Structurally normal mitral valve. No evidence for mitral valve prolapse. No mitral stenosis. Trace mitral regurgitation. Aortic Valve Aortic valve not well visualized. No aortic valve stenosis or regurgitation. Tricuspid Valve Tricuspid valve not well visualized. No tricuspid stenosis. Trace to mild tricuspid regurgitation. Pulmonic Valve Pulmonic valve not well visualized. Pericardium No pericardial effusion. Aorta Aortic root and proximal ascending aorta not well visualized. CONCLUSIONS Left ventricular ejection fraction 60% RVSP 35 Trace mitral regurgitation Trace to mild tricuspid regurgitation Previewed by: Dr. Chacho Moody DO (Electronically Signed) Final Date: 31 March 2024 13:51
[2024-03-31] MEDS: DILTIAZEM DRIP BOLUS FROM BAG 1 MG SOLN IV ONE ×2 (14:46→18:21)
[2024-03-31] MEDS: DILTIAZEM 125 MG in SODIUM CHLORIDE 0.9% 100 ML IV SCH (14:46)
[2024-03-31] MEDS: BENZONATATE 100 MG CAP PO PRN (14:52)
[2024-03-31 16:13] LABS: Glucose,Whole Blood 205 mg/dL (70-110)
[2024-04-01 07:54] VITALS: TEMP 97.7
[2024-04-01] MEDS: predniSONE 10 MG TAB PO SCH (07:56)
[2024-04-01 10:05] LABS: HCT 43.5 % (34.0-46.0); HGB 14.6 gm/dL (11.4-16.0); MCH 31.2 pg (25.0-35.0); MCHC 33.6 g/dL (31.0-37.0); MCV 93.1 fL (80.0-100.0); Mean Platelet Volume 7.8; Platelet Count 488 k/uL (150-450); RBC 4.68 m/uL (3.80-5.40); RDW 13.3 % (11.5-15.5); WBC 23.8 k/uL (3.8-10.6)
--- NOTE | 2024-04-01 10:42 | P.PN ---
Subjective Progress Note Date: 04/01/24 Principal diagnosis: COPD exacerbation. Pulmonary consult dated March 30, 2024. 63-year-old female presented to the emergency department, on March 29, at about 1 PM. The patient came in with complaints of rapid heartbeat, palpitations, and shortness of breath. She apparently had seen her doctor, and was given steroids and antibiotics, with only minimal improvement. More recently, things got worse, so she decided to come into the emergency department to be evaluated. H er primary care physician is Dr. Jitendra Pink. She is a heavy smoker, having smoked at least a pack a day for 40 years. She does continue to smoke up until the time of her admission. She denied any fever or chills. She was coughing. Things have gotten worse over the last few days, and, she was admitted to the hospital with a diagnosis of atrial fibrillation/flutter, with rapid ventricular response, as well as COPD exacerbation. She is seen today in room 19, in the emergency department. Her past medical history is positive for hypertension, hypothyroidism, and most certainly, COPD. She has never seen a lung doctor in the past, but was recently given Trelegy, by her primary care physician. In addition as mentioned above, she received steroids and antibiotics. Surgical history includes , cholecystectomy, and tonsillectomy. Current laboratory data includes a white count of 15.5, with a normal hemoglobin, hematocrit, platelet count. Coagulation studies including D-dimer were normal. Sodium 133, potassium 4.7, chloride 99, CO2 29, BUN 13, creatinine 0.65. Troponins were negative x 3. N-terminal proBNP was normal. Urine was negative. Influenza RSV, and coronavirus testing was negative. Initial EKG showed atrial flutter with rapid ventricular response, and subsequent EKG showed sinus rhythm. She is currently in sinus rhythm. Chest x-ray was unremarkable. Progress note dated March 31, 2024. 63-year-old female seen yesterday in the emergency department. She was admitted with a COPD exacerbation, and atrial fibrillation with RVR. She is currently on room air. She is not receiving any IV fluids. The patient disputes the fact that she is a heavy smoker, having smoked 1 to 1-1/2 pack of cigarettes a day for 40+ years. She is feeling better from the pulmonary standpoint. We have her on appropriate medications including updrafts, and corticosteroids. I have counseled her over and over about the importance of smoking cessation. Current laboratory data includes a sodium 133, potassium 4.6, chloride 98, CO2 25, BUN 15, creatinine 0.54. Glucose is 151. Calcium is 9.9. Procalcitonin level was 0.04. TSH was normal. Progress note dated April 01, 2024. 63-year-old female admitted with a COPD exacerbation. She has also had issues with atrial fibrillation/flutter. She is seen today in room 354. From the pulmonary standpoint, she is doing better. Her breathing is much improved. She is on room air. No IV fluids. She is receiving Cardizem at 2.5 mg an hour. Her budesonide and formoterol, will be converted to Symbicort 160/4.5, 2 puffs twice a day. Labs today include a white count 23.8, hemoglobin 14.6, hematocrit 43.5, and platelet count 488,000. Objective - Vital Signs Vital signs: Vital Signs Temp 97.7 F 04/01/24 07:54 Pulse 74 04/01/24 08:36 Resp 22 04/01/24 07:54 BP 123/68 04/01/24 07:54 Pulse Ox 94 L 04/01/24 08:32 FiO2 Intake & Output 03/31/24 04/01/24 04/01/24 18:59 06:59 18:59 Intake Total 1090.583 38.333 234.542 Balance 1090.583 38.333 234.542 Weight 96.5 kg Intake: IV 20 10 Invasive Line 1 20 10 Intake, IV Titration 48.583 28.333 114.542 Amount Diltiazem 125 mg In 48.583 28.333 114.542 Sodium Chloride 0.9% 100 ml @ 10 MG/HR 10 mls/hr IV .[id number] [facility] Rx#: [id number] Oral 1022 120 Other: Voiding Method Toilet Toilet Toilet # Voids 2 1 - Exam No acute distress, oriented 3. Mild dyspnea during conversation. No audible wheezing. Only on room air. HEENT examination is grossly unremarkable. Mucous membranes are moist. No oral lesions. Neck supple. Full range of motion. No adenopathy thyromegaly or neck vein distention. Cardiovascular examination reveals regular rhythm rate. S1-S2 normal. No S3 or S4. No discernible murmur noted. Heart rate 74 bpm. Lungs reveal Tory rhonchi and wheezes. Breath sounds are equal bilaterally. No crackles. There is prolongation on forced maneuver. Adventitious lung sounds are more prominent on forced maneuver. Room air saturation is 94 %. Abdomen soft bowel sounds are heard. No masses or tenderness. Extremities are intact. No cyanosis or clubbing. Less than 1+ edema to the lower extremities. Skin is without rash or lesion. Neurologic examination is brief but nonfocal. - Labs CBC & Chem 7: 04/01/24 09:02 03/31/24 10:31 Labs: Abnormal Lab Results - Last 24 Hours (Table) 03/31/24 03/31/24 03/31/24 Range/Units 10:31 11:11 16:11 WBC (3.8-10.6) k/uL Plt Count (150-450) k/uL Sodium 133 L (137-145) mmol/L Glucose 137 H (74-99) mg/dL POC Glucose (mg/dL) 151 H 205 H (70-110) mg/dL 04/01/24 Range/Units 09:02 WBC 23.8 H (3.8-10.6) k/uL Plt Count 488 H (150-450) k/uL Sodium (137-145) mmol/L Glucose (74-99) mg/dL POC Glucose (mg/dL) (70-110) mg/dL Assessment and Plan Assessment: Acute exacerbation of COPD. Atrial fibrillation and flutter, likely the result of the patient's underlying COPD. Possible cor pulmonale and pulmonary hypertension, secondary to COPD. History of ongoing tobacco use with nicotine addiction for 40 years. History of hypertension. History of hypothyroidism. Obesity. Plan: Plan dated March 30, 2024. The patient is seen in the emergency department, room 19. Her is also in the room. The patient has a COPD exacerbation, which likely triggered her irregular rapid heartbeat. I suspect she has a component of cor pulmonale and pulmonary hypertension, as she does have some trace edema. The patient has smoked at least a pack a day for 40+ years. She does continue to smoke cigarettes. The patient is placed on Pulmicort 1 mg mixed with formoterol 20 mcg twice a day. In addition, the patient will get DuoNebs, 4 times daily and as needed. Finally, the patient should get Solu-Medrol 60 mg every 6 hours. No need for an antibiotic at this time. A procalcitonin level can be checked. Chest x-ray was unremarkable. She did have antibiotics as an outpatient. The patient is counseled about the importance of smoking cessation. Would suggest a nicotine patch. Plan dated March 31, 2024. The patient is seen today in room 354. The patient is feeling better from the pulmonary standpoint. Her only complaint today was a headache. Labs, x-rays, medications are reviewed. She remains on appropriate medications. She is counseled again, about the importance of smoking cessation. She will need follow-up in the office, with complete pulmonary function test. Phenotypically, she looks like the typical patient with chronic bronchitis/blue bloater. Plan dated April 01, 2024. The patient had some issues with atrial fibrillation/flutter last night. The patient was placed on Cardizem. This been weaned down to 2.5 mg an hour. The patient is not requiring any supplemental oxygen. The patient is currently not requiring any IV fluids. Her budesonide, and formoterol, are changed to Symbicort, 160/4.5, 2 puffs twice a day. Labs, x-rays, and medications are reviewed. Prognosis is guarded. We will continue to follow the patient, and make recommendations along the way. Time with Patient: Less than 30
--- NOTE | 2024-04-01 10:53 | P.PN ---
Subjective Progress Note Date: 04/01/24 Reason for Consult (text): New onset atrial fibrillation History of present illness: This is a 63-year-old female patient of Dr. Rehan López with past medical history of palpitations, hypertension, tobacco use, chronic bilateral leg edema, hypothyroidism. Patient was recently evaluated in the office on 01/24 and at that time patient was having shortness of breath mild to moderate intensity with exertion and relieved at rest. Patient underwent event monitor, exercise stress test and results are below. Echocardiogram was also ordered but is scheduled at a later date. Patient gives history that she was feeling okay but she had cold symptoms and was seen by Dr. Pink started on prednisone and azithromycin on Wednesday. She has had ongoing cough, no fever. She also states her medications were changed by Dr. Pink due to her blood pressure running high. Upon arrival, patient was found to be in atrial flutter with RVR. Patient was started on Cardizem bolus 5 mg followed by drip and heparin drip. Blood pressure 134/71, heart rate 69, pulse ox 96% on 2 L nasal cannula. Patient has subsequently converted to sinus rhythm around 2 in the afternoon yesterday. EKG: #1 atrial flutter at 149 bpm, #2 sinus rhythm at 70 bpm. Chest x-ray: Laboratory studies: WBC 15.5, hemoglobin 15.1. D-dimer 0.25. Sodium 128, potassium 4.9, BUN 13 creatinine 0.46. Troponins negative x 3. proBNP 109. Influenza A, influenza B, RSV and COVID-19 not detected Home cardiac medications: Amlodipine 10 mg daily, hydralazine 50 mg twice daily, losartan/hydrochlorothiazide 100-25 mg 1 daily, potassium chloride 10 mill equivalents daily, also on levothyroxine 125 mcg daily. Event monitor performed 02/28 - 03/01/2024 revealed sinus arrhythmia lasting 7 beats. Primary rhythm sinus rhythm average heart rate 88 bpm, maximum heart rate 179. No evidence of A-fib/flutter, pauses, AV block, ventricular arrhythmias. Exercise stress test performed in the office on 02/29/2024 revealed fair exercise tolerance. No symptoms typical of angina. Just arrhythmias in the form of occasional PVCs. Normal electrocardiographic response to exercise with no evidence of stress-induced ischemia. Echocardiogram performed in the office in 2018 revealed normal LV size and function, mild MR, mild TR, mild MT. 03/31 Patient remains in sinus rhythm. She was started on Eliquis yesterday. She continues to have some wheezing and treated for COPD exacerbation. Echocardiogr am is pending. Patient states that her breathing is better. No palpitations. No chest pain. TSH came back normal. 04/01 Yesterday afternoon, after patient received steroids, she went into A-fib/fl utter with RVR 1 dose of oral short acting Cardizem was given but patient remained tachycardic and Cardizem bolus and drip was started. She continued to be tachycardic and received another cardizem bolus Patient has since converted to a sinus rhythm last evening. Heart rate is in the 70s, blood pressure 123/68, pulse ox 96 percent on 2 L nasal cannula. She states that she is feeling much better today. Echocardiogram reveals EF 60%, RVSP 35, trace mitral regurgitation, trace to mild tricuspid regurgitation. Physical examination: Gen: This is a 63-year-old female VS: reviewed HEENT: Head is atraumatic, normocephalic. Pupils equal, round. Sclerae is anicteric. NECK: Supple. No JVD. LUNGS: Bilateral wheezing. No intercostal retractions. HEART: Regular rate and rhythm. No murmur. ABDOMEN: Soft No tenderness. EXTREMITIES: No pedal edema. No calf tenderness. NEUROLOGICAL: Patient is awake, alert and oriented x3. Assessment: New onset A-fib with RVR, paroxysmal, currently in sinus rhythm COPD exacerbation Hypertension Tobacco use and dependence Hypothyroidism Chronic lower extremity edema Plan: Continue patient's home cardiac medications Increase Cardizem CD to 180 mg oral daily Start patient on flecainide 50 mg twice daily Continue Eliquis 5 mg twice daily Patient is cleared from cardiology for discharge. Patient to follow-up with Dr. Rehan López in 3 weeks. Nurse practitioner note has been reviewed, I agree with documented findings and plan of care. Patient was seen and examined. Objective - Vital Signs Vital signs: Vital Signs Temp 97.7 F 04/01/24 07:54 Pulse 74 04/01/24 08:36 Resp 22 04/01/24 07:54 BP 123/68 04/01/24 07:54 Pulse Ox 94 L 04/01/24 08:32 FiO2 Intake & Output 03/31/24 04/01/24 04/01/24 18:59 06:59 18:59 Intake Total 1090.583 38.333 227.167 Balance 1090.583 38.333 227.167 Weight 96.5 kg Intake: IV 20 10 Invasive Line 1 20 10 Intake, IV Titration 48.583 28.333 107.167 Amount Diltiazem 125 mg In 48.583 28.333 107.167 Sodium Chloride 0.9% 100 ml @ 10 MG/HR 10 mls/hr IV .[id number] [facility] Rx#: [id number] Oral 1022 120 Other: Voiding Method Toilet Toilet Toilet # Voids 2 1 - Labs CBC & Chem 7: 04/01/24 09:02 03/31/24 10:31 Labs: Abnormal Lab Results - Last 24 Hours (Table) 03/31/24 03/31/24 03/31/24 Range/Units 10:31 11:11 16:11 Sodium 133 L (137-145) mmol/L Glucose 137 H (74-99) mg/dL POC Glucose (mg/dL) 151 H 205 H (70-110) mg/dL
[2024-04-01] MEDS: FLECAINIDE 50 MG TAB PO SCH (11:07)
[2024-04-01] MEDS: DILTIAZEM CD 180 MG CAP.ER.24H PO SCH (11:07)
[2024-04-01 12:09] VITALS: BP 135/75; PULSE 81; RESP 20
--- NOTE | 2024-04-01 14:07 | P.DS ---
Providers Date of admission: 03/29/24 14:44 Attending physician: Lázaro Meraz MD Consults: 03/29/24 14:42 Consult Physician Routine Consulting Provider: [facility] Consult Reason/Comments: new onset afib with rvr Do you want consulting provider notified?: Yes 03/30/24 12:07 Consult Physician Routine Consulting Provider: Francisco Boland Reason/Comments: COPD newly diagnosed in exacerbation, current smoker Do you want consulting provider notified?: Yes Primary care physician: [facility] Hospital Course: Patient is a 63-year-old female with history of hypertension and current smoker who came in for shortness of breath that occurred on 03/29. Patient reports she used a new inhaler prescribed by PCP and shortly afterwards she felt short of breath that was nonpleuritic with associated palpitation. Patient reports that she has been having episodes of shortness of breath with exertion prior to this event and is being evaluated by gas controller (Dr. López). She is determined to be have COPD exacerbation with new-onset AFib. EKG shows A-fib with RVR has converted to NSR at 70 bpm with good R wave progression and QTc 394 MS. Chest x- ray shows no acute process but is noted to have some congestion. Negative for COVID-19, influenza type A and B, and RSV. Pulmonology and cardiology were consulted. She had episode of short A-fib runs but has been stable throughout her hospital stay. Her symptoms have improved and have been controlled with medical management. Physical examination: Vital signs reviewed General: non toxic, no distress, appears at stated age, obese Derm: no unusual rashes/lesions, warm Head: atraumatic, normocephalic, symmetric Eyes: EOMI, no lid lag, anicteric sclera, pupils equal round reactive to light ENT: Nose and ears atraumatic Neck: No cervical lymphadenopathy, trachea midline, supple Mouth: no lip lesion, mucus membranes moist Cardiovascular: S1S2 reg, no murmur Lungs: CTA bilateral lung evans, no accessory muscle use Abdominal: soft, nontender to palpation, no guarding Ext: muscle strength 5 out of 5 in all 4 extremities grossly, no gross muscle atrophy, no contractures, positive dorsalis pedis pulse bilateral, no edema Neuro: CN II-XI grossly intact, no gross focal neuro deficits Psych: Alert, oriented, appropriate affect and mood Attestation: I have personally seen and examined the patient with Resident, reviewed the documentation and participated and agree with the assessment and plan as written. Assessment: # COPD in acute exacerbation, resolved # New-onset A-fib with RVR likely due to COPD exacerbation Chronic conditions: Hypertension, hypothyroidism, current smoker, obesity Patient Condition at Discharge: Stable Plan - Discharge Summary Discharge Rx Participant: No New Discharge Prescriptions: New Apixaban [Eliquis] 5 mg PO BID #180 tab hydrALAZINE HCL [Apresoline] 25 mg PO TID 30 Days #90 tab Diltiazem Cd [Cardizem CD] 180 mg PO DAILY 30 Days #30 cap Losartan-Hctz 50-12.5 mg [Hyzaar 50-12.5] 2 each PO DAILY 30 Days #60 tab predniSONE 30 mg PO DAILY 3 Days #3 tab Albuterol Inhaler [Ventolin Hfa Inhaler] 1 - 2 puff INHALATION Q6H PRN #1 each PRN Reason: Shortness Of Breath guaiFENesin [Mucinex] 600 mg PO Q12HR 15 Days #30 tab Flecainide [Tambocor] 50 mg PO Q12HR 30 Days #60 tab Benzonatate [Tessalon Perles] 200 mg PO TID PRN 10 Days #60 cap PRN Reason: Cough Continue Potassium Chloride ER [K-Dur 10] 10 meq PO DAILY Azelastine HCl [Astelin Nasal [place]] 2 spray EA NOSTRIL BID PRN PRN Reason: Allergy Symptoms Levothyroxine Sodium [Synthroid] 125 mcg PO DAILY Fluticasone/Umeclidin/Vilanter [Trelegy Ellipta 100-62.5-25] 1 puff INHALATION RT-DAILY Ascorbic Acid [Vitamin C] 1,000 mg PO DAILY Multivitamins, Thera [Multivitamin (formulary)] 1 tab PO DAILY Discontinued amLODIPine [Norvasc] 10 mg PO DAILY Losartan/Hydrochlorothiazide [Losartan-Hctz 100-25 mg Tab] 1 tab PO DAILY Azithromycin [Zithromax Z Pack] See Taper PO DIRECTED predniSONE 50 mg PO DAILY hydrALAZINE HCL [Apresoline] 50 mg PO BID Discharge Medication List Ascorbic Acid [Vitamin C] 1,000 mg PO DAILY 03/29/24 [History] Azelastine HCl [Astelin Nasal [place]] 2 spray EA NOSTRIL BID PRN 08/28/24 [History] Fluticasone/Umeclidin/Vilanter [Trelegy Ellipta 100-62.5-25] 1 puff INHALATION RT-DAILY 03/29/24 [History] Levothyroxine Sodium [Synthroid] 125 mcg PO DAILY 03/29/24 [History] Multivitamins, Thera [Multivitamin (formulary)] 1 tab PO DAILY 03/29/24 [History] Potassium Chloride ER [K-Dur 10] 10 meq PO DAILY 03/29/24 [History] Apixaban [Eliquis] 5 mg PO BID #180 tab 03/30/24 [Rx] Albuterol Inhaler [Ventolin Hfa Inhaler] 1 - 2 puff INHALATION Q6H PRN #1 each 04/01/24 [Rx] Benzonatate [Tessalon Perles] 200 mg PO TID PRN 10 Days #60 cap 04/01/24 [Rx] Diltiazem Cd [Cardizem CD] 180 mg PO DAILY 30 Days #30 cap 04/01/24 [Rx] Flecainide [Tambocor] 50 mg PO Q12HR 30 Days #60 tab 04/01/24 [Rx] Losartan-Hctz 50-12.5 mg [Hyzaar 50-12.5] 2 each PO DAILY 30 Days #60 tab 04/01/24 [Rx] guaiFENesin [Mucinex] 600 mg PO Q12HR 15 Days #30 tab 04/01/24 [Rx] hydrALAZINE HCL [Apresoline] 25 mg PO TID 30 Days #90 tab 04/01/24 [Rx] predniSONE 30 mg PO DAILY 3 Days #3 tab 04/01/24 [Rx] Follow up Appointment(s)/Referral(s): Francisco Boland DO [Doctor of Osteopathic Medicine] - 1 Week (Offices are closed at this time, please call to make a post hospital follow up appointment.) Hector López MD [STAFF PHYSICIAN] - 3 Weeks (Offices are closed at this time, please call to make a post hospital follow up appointment.) Jitendra Pink MD [Primary Care Provider] - 1-2 days (Offices are closed at this time, please call to make a post hospital follow up appointment.) Patient Instructions/Handouts: Atrial Flutter (DC), A-fib (Atrial Fibrillation) (DC), How to Stop Smoking (DC), COPD (Chronic Obstructive Pulmonary Disease) (DC) Discharge Disposition: HOME SELF-CARE
[2024-04-01] MEDS ORDERED: SYMBICORT 160-4.5 MCG INHALER INHALATION SCH (20:00)
== END 2024-04-01 14:13 | disposition home or self-care (01) | DRG 191 ==
LOC: EC 12:50 → 3SCARD 14:44
PROVIDERS: ADMIT Internal Medicine; ATTEND Internal Medicine
DX: J44.1 Chronic obstructive pulmonary disease with (acute) exacerbation (principal); I48.92 Unspecified atrial flutter; Z20.822 Contact with and (suspected) exposure to COVID-19; I48.91 Unspecified atrial fibrillation; I49.3 Ventricular premature depolarization; E03.9 Hypothyroidism, unspecified; E66.9 Obesity, unspecified; Z68.34 Body mass index [BMI] 34.0-34.9, adult; F17.210 Nicotine dependence, cigarettes, uncomplicated; Z71.6 Tobacco abuse counseling; I10 Essential (primary) hypertension; R09.02 Hypoxemia; I27.29 Other secondary pulmonary hypertension; Z79.01 Long term (current) use of anticoagulants; Z79.51 Long term (current) use of inhaled steroids; Z79.890 Hormone replacement therapy; Z79.899 Other long term (current) drug therapy
CPT/HCPCS: 36415; 71045; 80048; 80053; 81003; 83735; 83880; 84145; 84443; 84484; 85025; 85027; 85379; 85610; 85730; 87636; 93005; 93306; 94640; 94760; 96361; 96365; 96374; 99291

== ENCOUNTER → 2024-05-06 | Outpatient (CLI) | payer BC ==
--- NOTE | 2024-05-06 09:35 | CTL ---
EXAMINATION TYPE: CT Low Dose Lung DATE OF EXAM ORDERED: 05/06/2024 HISTORY: Tobacco use. Lung cancer screening CT DLP: 125.[address] CTDI: 3.6 mGy Automated exposure control for dose reduction was used. SCREENING VISIT: Initial COMPARISON: None TECHNIQUE: Low dose computed tomography scan was performed through the chest at 1 mm thick sections a nd reconstructed images in the coronal plane at [address] DIAGNOSTIC QUALITY: Satisfactory FINDINGS: LUNG NODULES: Present, detailed below: 1. There are a couple of faint densities in the periphery of the right upper lung field, the larger m easures 0.4 cm. Series 4 image 56. 2. There is a groundglass opacity in the right upper lung field measuring 2.1 cm. Series 4 image 77. Short-term follow-up recommended. 3. Faint groundglass opacities anterior right measuring 1.0 cm. Series 4 image 131. 4. There is a 0.5 cm nodule posterior to the atrial fissure on the left. Series 4 image 142 LUNGS: COPD: Severity: None Fibrosis: Severity: None Lymph nodes: Scattered lymphadenopathy is within the bilateral axillary regions larger on the left. Largest of these is borderline 1.0 cm. Scattered small lymph nodes within the mediastinum. Other findings: None RIGHT PLEURAL SPACE: Effusion: None Calcification: None Thickening: None Pneumothorax: None LEFT PLEURAL SPACE: Effusion: None Calcification: None Thickening: None Pneumothorax: None HEART: Other: Ascending thoracic aorta at the level the main pulmonary artery measures 3.6 cm. The main pul monary artery at the bifurcation measures 2.8 cm. Heart Size: Normal Coronary calcification: Mild Pericardial effusion: Minimal OTHER FINDINGS: Upper abdomen: Normal Bony thorax: Normal Supraclavicular region: Normal IMPRESSION: Groundglass opacity right midlung. Short-term follow-up recommended. FOLLOW UP CT CHEST RECOMMENDATION: Follow up low dose CT chest [address] LUNG RAD: Lung-Rad 3 [facility], Workstation: [facility], 05/06/2024 9:33 AM
[2024-05-06 12:41] LABS: Basophils # (A) 0.06 X 10*3/uL (0.00-0.10); Basophils % (A) 0.4 %; Eosinophils # (A) 0.17 X 10*3/uL (0.04-0.35); Eosinophils % (A) 1.2 %; HCT 41.6 % (37.2-46.3); HGB 13.9 g/dL (12.0-15.0); Lymphocytes # (A) 1.95 X 10*3/uL (0.90-5.00); Lymphocytes % (A) 13.7 %; MCH 30.5 pg (27.0-32.0); MCHC 33.4 g/dL (32.0-37.0); MCV 91.4 FL (80.0-97.0); Mean Platelet Volume 9.7 FL (9.5-12.2); Monocytes # (A) 1.39 X 10*3/uL (0.20-1.00); Monocytes % (A) 9.8 %; NRBC Per 100 WBC 0 X 10*3/uL (0.00-0.01); Neutrophils # (A) 10.59 X 10*3/uL (1.80-7.70); Neutrophils % (A) 74.5 %; Platelet Count 424 X 10*3/uL (140-440); RBC 4.55 X 10*6/uL (4.10-5.20); RDW 13.5 % (11.5-14.5); WBC 14.21 X 10*3/uL (4.50-10.00)
== END | disposition home or self-care (01) ==
LOC: RADCTMAIN 08:06
PROVIDERS: ATTEND Internal Medicine
DX: Z12.2 Encounter for screening for malignant neoplasm of respiratory organs
CPT/HCPCS: 71271; 82785; 85025

== ENCOUNTER → 2024-05-16 | Outpatient (CLI) | payer BC ==
--- NOTE | 2024-05-18 21:04 | MR ---
EXAMINATION TYPE: MRI right shoulder without IV contrast DATE OF EXAM: 05/16/2024 COMPARISON: None HISTORY: Right shoulder pain since January 2024, Unable to raise arm, Hx surgery 20+ yrs ago TECHNIQUE: Multiplanar, multisequence imaging of the right shoulder is performed without contrast. FINDINGS: Rotator Cuff: Moderate supraspinatus and infraspinatus tendinopathy which appear somewhat thinned. Sm all intrasubstance split tear along the infraspinatus tendon at its critical zone. Mild subscapularis tendinopathy. Teres minor tendon is intact. No significant rotator cuff muscle atrophy or edema. Acromioclavicular Joint: Alignment is maintained. No significant effusion. Mild/moderate osteoarthrit is including capsular hypertrophy and small marginal osteophytes. Minimal lateral acromial downslopin g. Glenohumeral Joint: Alignment is maintained. No high-grade chondral defects. Small joint effusion wit h low-level synovitis. Mild pericapsular edema along the rotator cuff interval and inferior glenohume ral ligament (mostly along the anterior band) which can be seen with adhesive capsulitis. Labrum: No displaced labral tear or para labral cysts. Biceps Tendon: Mild intracapsular and extracapsular biceps tendinopathy without tear. Mild biceps ten osynovitis. Bone marrow signal: Negative for fracture or contusion. Small hyperintense T2/hypointense T1 lesion o f the distal clavicle which appears somewhat geographic and may relate to a enchondroma or small bone infarct. Other: Mild/moderate fluid in the subacromial/subdeltoid bursa. IMPRESSION: 1. Moderate supraspinatus and infraspinatus tendinopathy. Small intrasubstance split tear of the infr aspinatus tendon at its critical zone. Mild subscapularis tendinopathy. No significant rotator cuff m uscle atrophy. 2. Glenohumeral pericapsular edema which may relate to adhesive capsulitis. Please correlate. 3. Mild intracapsular and extracapsular biceps tendinopathy with mild tenosynovitis. 4. Possible enchondroma versus bone infarct in the distal clavicle. 5. Mild/moderate fluid in the subacromial/subdeltoid bursa. 6. Small glenohumeral joint effusion. [facility], , 05/18/2024 9:02 PM
== END | disposition home or self-care (01) ==
LOC: RADMRIMAIN 19:08
PROVIDERS: ATTEND Orthopaedic Surgery Hand Surgery
DX: M25.511 Pain in right shoulder

== ENCOUNTER → 2024-06-12 | Outpatient (CLI) | payer BC ==
--- NOTE | 2024-06-17 19:10 | MM ---
Reason for Exam: Screening (asymptomatic). Last mammogram was performed 1 year(s) and 6 month(s) ago. Patient History: Menarche at age 14. First Full-Term at age 29. Postmenopausal. Patient used Hormonal Contraceptives for 12 years. 09/27/2007, Benign Cyst Aspiration on the left side. 09/27/2007, Benign Core Biopsy on the left side. Paternal aunt had breast cancer, age 60. Risk Values: Flor 5 year model risk: 2.0%. NCI Lifetime model risk: 9.0%. Prior Study Comparison: 01/12/2019 Bilateral Screening Mammogram, [facility]. 10/16/2021 Bilateral Screening Mammogram, [facility]. 12/29/2022 Bilateral MG 3D screening mammo w/cad, [facility]. Tissue Density: The breasts are extremely dense, which lowers the sensitivity of mammography. Findings: Analyzed By CAD. The pattern is symmetrical. There is a core marker within the left breast. Chronic nodularity is right breast No suspicious groups of microcalcifications, spiculated or lobular masses, architectural distortion or other secondary signs of malignancy are mammographically apparent. Overall Assessment: Benign, BI-RAD 2 Management: Screening Mammogram of both breasts in 1 year. A negative mammogram report should not preclude additional follow up of suspicious palpable abnormalities. Patient should continue monthly self breast exam. A clinical breast exam by your physician is recommended on an annual basis and results should be correlated with mammographic findings. Note on Flor scores and lifetime risk: 1. A Flor score greater than 3% is considered moderate risk. If this is the case, consider specialist referral to assess eligibility for a risk reducing agent. 2. If overall lifetime risk for the development of breast cancer is 20% or higher, the patient may qualify for future screening with alternating mammogram and breast MRI. [facility], , 06/17/2024 7:07 PM. Electronically signed and approved by: Kraig Mckeon D.O. Radiologis
--- NOTE | 2024-06-18 22:14 | BD ---
EXAMINATION TYPE: Axial Bone Density DATE OF EXAM: 06/12/2024 CLINICAL HISTORY: 64 years old Female. ICD-10 CODE: Z78.0 POST MENOPAUSAL , Additional History: Height: 64.25 Weight: 218.1 FRAX RISK QUESTIONS: Alcohol (3 or more units per day): no Family History (Parent hip fracture): yes Glucocorticoids (More than 3mos): no (Ex: prednisone, prednisolone, methylprednisolone, dexamethasone, and hydrocortisone). History of Fracture in Adulthood: foot Secondary Osteoporosis: 1. Type 1 Diabetes: no 2. Hyperthyroidism: no 3. Menopause before 45: yes 4. Malnutrition: no 5. Chronic liver disease: no Rheumatoid Arthritis: no Current Tobacco Use: yes RISK FACTORS HISTORY OF: Hip Fracture (Right/Left): no Spine Fracture: no History of Wrist Fracture: no Surgery to Spine/Hip(right/left)/Wrist (right/left): no MEDICATIONS: Thyroid Medications: Synthroid How Long: past 20 years Osteoporosis Medications: no EXAM MEASUREMENTS: Bone mineral densitometry was performed using the [employer] System. Bone mineral density as measured about the Lumbar spine is: ----- L1-L4(G/cm2): 1.422 T Score Values are as follows: ----- L1: 1.4 ----- L2: 1.0 ----- L3: 2.2 ----- L4: 3.1 ----- L1-L4: 2.0 Z Score Values are as follows: ----- L1: 1.6 ----- L2: 1.2 ----- L3: 2.4 ----- L4: 3.36 ----- L1-L4: 2.2 Baseline Study Bone mineral density about the R hip (g/cm2): 1.100 Bone mineral density about the L hip (g/cm2): 1.293 T Score values are as follows: -----R Neck: 0.4 -----L Neck: 0.7 -----R Total: 0.7 -----L Total: 2.3 Z Score values are as follows: -----R Neck: 1.0 -----L Neck: 1.3 -----R Total: 0.9 -----L Total: 2.5 Baseline Study FRAX%s: The graph provided illustrates a 10.9% chance for a major osteoporotic fx and a 0.2% chance f or the hips probability for fx in 10 years time. IMPRESSION: Normal (Values between +1 and -1 indicate normal bone mass). Consider repeating this study in 5 year s or sooner if there is some new clinical indication. NOTE: T-SCORE=SD OF THE YOUNG ADULT MEAN. [facility], , 06/18/2024 10:12 PM
== END | disposition home or self-care (01) ==
LOC: RADMAMWWP 07:51
PROVIDERS: ATTEND Obstetrics & Gynecology
DX: Z12.31 Encounter for screening mammogram for malignant neoplasm of breast (principal); Z78.0 Asymptomatic menopausal state; Z80.3 Family history of malignant neoplasm of breast
CPT/HCPCS: 77063; 77067; 77080